=== PATIENT | female | born 1960 | race Caucasian/White ===

== ENCOUNTER 2020-11-10 10:16 | Outpatient (CLI) | payer OTHER, SELFPAY | END 2020-11-10 10:17 | disposition home or self-care (01) | PROVIDERS: PCP Nurse Practitioner Family; Referring Provider Internal Medicine Endocrinology, Diabetes & Metabolism; Visit Provider Registered Nurse | DX: E78.2 Mixed hyperlipidemia (principal); E03.9 Hypothyroidism, unspecified | CPT/HCPCS: 36415; 84443 ==

== ENCOUNTER 2020-12-12 08:55 | Outpatient (CLI) | payer OTHER, SELFPAY ==
--- NOTE | ~2020-12-12 | US_ITS ---
EXAMINATION: US thyroid DATE: 12/12/2020 09:33 INDICATION: Multinodular goiter. TECHNIQUE: Multiple ultrasound images of the thyroid were obtained. COMPARISON: Ultrasound 02/09/2019 FINDINGS: The right thyroid lobe is absent. The left thyroid lobe measures 4.1 x 1.7 x 1.3 cm. The left thyroi d lobe is diffusely heterogeneous and hypoechoic. In the left thyroid lobe, there is a 15 mm solid, h ypoechoic, oltjs-emwh-fxal nodule with ill-defined margin without echogenic foci (TI-RADS TR4). IMPRESSION: 1. Left thyroid nodule, stable from 02/09/2019. Biopsy on 02/21/2019 was benign. Reviewed, dictated and finalized at location B.
[2020-12-12 09:26] LABS: Hemoglobin A1C 9.5 % (<5.7)
[2020-12-12 09:29] LABS: Alanine Aminotransferase 15 U/L (4-35); Alkaline Phosphatase 70 U/L (38-126); Anion Gap 7 mmol/L (8-16); Aspartate Amino Transferase 20 U/L (14-36); Bilirubin,Total 0.3 mg/dL (0.2-1.3); Blood Urea Nitrogen 12 mg/dL (7-17); Calcium 9.3 mg/dL (8.4-10.2); Carbon Dioxide 31 mmol/L (22-30); Chloride 100 mmol/L (98-107); Cholesterol 173 mg/dL (0-200); Estimated Glomerular Filt Rate > 60; Glucose 278 mg/dL (65-105); HDL Direct 43 mg/dL; Potassium 4.2 mmol/L (3.4-5.0); Sodium 138 mmol/L (137-145); Triglycerides 127 mg/dL (<150)
[2020-12-12 09:40] LABS: LDL Cholesterol Direct 105 mg/dL
[2020-12-12 10:34] LABS: Free T4 Free Thyroxine 0.99 ng/mL (0.78-2.19)
[2020-12-12 13:32] LABS: Creatinine Urine 90.1 mg/dL
[2020-12-12 14:21] LABS: MALB Creatinine Ratio 817.8 mg/g (0-30); Microalbumin Urine Random 736.8 mg/L (0-16.7)
== END 2020-12-12 08:56 | disposition home or self-care (01) ==
PROVIDERS: PCP Nurse Practitioner Family; Visit Provider Internal Medicine Endocrinology, Diabetes & Metabolism
DX: E04.2 Nontoxic multinodular goiter (principal); E11.65 Type 2 diabetes mellitus with hyperglycemia; E78.5 Hyperlipidemia, unspecified; E03.9 Hypothyroidism, unspecified
CPT/HCPCS: 36415; 76536; 80053; 80061; 82043; 83036; 84439; 84443

== ENCOUNTER 2021-01-01 14:44 | Outpatient (CLI) | payer OTHER, SELFPAY ==
[2021-01-01 17:17] LABS: Free T4 Free Thyroxine 1.11 ng/mL (0.78-2.19)
[2021-01-04 08:46] LABS: Triiodothyronine T3 Free 2.6 pg/mL (2.3-4.2)
== END 2021-01-01 14:45 | disposition home or self-care (01) ==
LOC: ANHLAB 14:47
PROVIDERS: PCP Nurse Practitioner Family; Visit Provider Internal Medicine Endocrinology, Diabetes & Metabolism
DX: E03.9 Hypothyroidism, unspecified (principal)
CPT/HCPCS: 36415; 84439; 84443; 84481

== ENCOUNTER 2021-01-12 13:55 | Outpatient (CLI) | payer OTHER, SELFPAY ==
--- NOTE | ~2021-01-12 | CT_ITS ---
EXAMINATION: CT lung screening DATE: 01/12/2021 14:21 INDICATION: Shortness of breath, cough. COPD. History of tobacco dependence. TECHNIQUE: Computed tomography (CT) of the chest was performed without intravenous contrast. The dose -length product was 305.09 mGy-cm. Automated exposure control and iterative reconstruction technique were employed. COMPARISON: CT dated 05/17/2019 FINDINGS: Heart size normal. No significant pleural or pericardial effusion. Stable enlarged 1 cm med iastinal lymph node, image 45. No significant pleural or pericardial effusion. Stable low-density lef t adrenal mass measuring 2.6 x 2 cm, likely benign adenoma. There are changes of right hemithyroidect wilma. There are a few scattered 2 mm pulmonary nodules. There is calcified granuloma right lower lobe. Mild emphysema. No endobronchial lesions. There is coronary and aortic atherosclerosis. No significa nt pleural or pericardial effusion. No pneumothorax. IMPRESSION: 1. Lung-RADS category 2: Benign appearance or behavior. Continue annual screening with noncontrast lo w-dose chest CT in 12 months. Reviewed, dictated and finalized at location A. IMPRESSION: 1. Lung-RADS category 2: Benign appearance or behavior. Continue annual screeni ng with noncontrast low-dose chest CT in 12 months.
== END 2021-01-12 13:56 | disposition home or self-care (01) ==
PROVIDERS: PCP Nurse Practitioner Family; Visit Provider Internal Medicine
DX: Z12.2 Encounter for screening for malignant neoplasm of respiratory organs (principal); Z87.891 Personal history of nicotine dependence
CPT/HCPCS: 71271

== ENCOUNTER 2021-06-19 14:38 | Outpatient (CLI) | payer OTHER, SELFPAY ==
--- NOTE | ~2021-06-19 | US_ITS ---
EXAMINATION: US thyroid EXAM DATE: 06/19/2021 16:06 INDICATION: Nontoxic goiter. Right thyroid lobectomy 2001. TECHNIQUE: Multiple grayscale and Doppler images of the thyroid were obtained (by a technologist who performed the scan) and subsequently reviewed. Individual nodules and recommendations may be reporte d in accordance with TI-RADS system as designated by the 2017 ACR White Paper TI-RADS committee. Comp reginason is made to prior examination from 12/12/2020. FINDINGS: Right there are lobe not identified, reportedly surgically absent. The left thyroid lobe is moderatel y diffusely heterogeneous, measures 4.3 x 1.6 x 1.8 cm. There is a thyroid nodule measuring 2.1 x 2.0 x 1.2 cm (previously reported at 1.5 x 1.2 x 1.1 cm in November). This also has reportedly previously bee n biopsied with benign results. The dimensions of the left thyroid lobe also are larger than on prior study. IMPRESSION: 1. Mild increase in size of left thyroid lobe and its previously biopsied nodule. 2. Unremarkable right thyroid lobectomy bed. Reviewed, dictated and finalized at location B. ET LITHOGRAPHIC PRESS SETTER IMPRESSION: 1. Mild increase in size of left thyroid lobe and its previously biopsied nodu le. 2. Unremarkable right thyroid lobectomy bed.
[2021-06-19 16:00] LABS: Free T4 Free Thyroxine 1.29 ng/mL (0.78-2.19)
[2021-06-24 07:08] LABS: Triiodothyronine T3 Free 2.9 pg/mL (2.3-4.2)
== END 2021-06-19 14:39 | disposition home or self-care (01) ==
LOC: ANHIMG 14:41
PROVIDERS: PCP Nurse Practitioner Family; Visit Provider Internal Medicine Endocrinology, Diabetes & Metabolism
DX: E03.9 Hypothyroidism, unspecified (principal)
CPT/HCPCS: 36415; 76536; 84439; 84443; 84481

== ENCOUNTER 2022-03-31 15:35 | Outpatient (CLI) | payer OTHER, SELFPAY ==
[2022-03-31 16:17] LABS: Basophils Absolute Auto 0.1 K/mm3 (0.0-0.1); Basophils Percent Auto 0.6 % (0.2-1.2); Eosinophils Absolute Auto 0.2 K/mm3 (0-0.3); Eosinophils Percent Auto 2.9 % (0-4.4); Hematocrit 34.9 % (37.0-47.0); Hemoglobin 10.1 g/dL (12.0-15.0); Immature Granulocyte Absolute 0.07 K/mm3 (0.00-0.031); Immature Granulocyte Percent A 0.8 % (0-0.5); Lymphocytes Absolute Auto 2.16 K/mm3 (0.9-3.2); Lymphocytes Percent Auto 26.1 % (18.3-44.2); Mean Corpuscular HGB Conc 28.9 g/dl (32-36); Mean Corpuscular Hemoglobin 24.4 pg (26-34); Mean Corpuscular Volume 84.3 fl (80-100); Mean Platelet Volume 9.8 fl (7.4-10.4); Monocytes Absolute Auto 0.6 K/mm3 (0.1-0.6); Monocytes Percent Auto 6.8 % (2.6-8.5); Neutrophils Absolute Auto 5.2 K/mm3 (1.3-6.7); Neutrophils Percent Auto 62.8 % (45.5-73.1); Platelet Count Result 289 k/mm3 (150-375); Red Blood Count 4.14 M/mm3 (4.2-5.4); White Blood Count 8.3 K/mm3 (4.5-10.0)
[2022-03-31 16:27] LABS: Alanine Aminotransferase 8 U/L (6-35); Albumin Level 3.4 g/dL (3.5-5.1); Alkaline Phosphatase 84 U/L (38-126); Anion Gap 8 mmol/L (8-16); Aspartate Amino Transferase 16 U/L (14-36); Bilirubin,Total 0.2 mg/dL (0.2-1.3); Blood Urea Nitrogen 11 mg/dL (7-17); Calcium 8.6 mg/dL (8.4-10.2); Carbon Dioxide 31 mmol/L (22-30); Chloride 99 mmol/L (98-107); Estimated Glomerular Filt Rate > 60; Glucose 105 mg/dL (65-110); Potassium 3.5 mmol/L (3.4-5.0); Sodium 138 mmol/L (137-145)
[2022-03-31 16:58] LABS: Carcinoembryonic Antigen 6.8 ng/mL (0.0-3.0)
[2022-03-31 17:10] LABS: Hemoglobin A1C 7.9 % (<5.7)
== END 2022-03-31 15:36 | disposition home or self-care (01) ==
PROVIDERS: PCP Nurse Practitioner Family
DX: E11.9 Type 2 diabetes mellitus without complications (principal); Z79.4 Long term (current) use of insulin
CPT/HCPCS: 36415; 80053; 82378; 83036; 85025

== ENCOUNTER 2022-04-08 15:03 | Outpatient (CLI) | payer OTHER, SELFPAY ==
[2022-04-08 15:34] LABS: Alanine Aminotransferase 14 U/L (6-35); Albumin Level 4.1 g/dL (3.5-5.1); Alkaline Phosphatase 77 U/L (38-126); Anion Gap 8 mmol/L (8-16); Aspartate Amino Transferase 18 U/L (14-36); Bilirubin,Total 0.3 mg/dL (0.2-1.3); Blood Urea Nitrogen 10 mg/dL (7-17); Calcium 9.8 mg/dL (8.4-10.2); Carbon Dioxide 27 mmol/L (22-30); Chloride 103 mmol/L (98-107); Estimated Glomerular Filt Rate > 60; Glucose 126 mg/dL (65-110); Potassium 4.6 mmol/L (3.4-5.0); Sodium 138 mmol/L (137-145)
[2022-04-08 15:45] LABS: Appearance Urine Clear (Clear); Bilirubin Urine Negative (Negative); Blood Urine 2+ (Negative); Glucose Urine UA Negative (Negative); Ketones Urine Negative (Negative); Leukocyte Esterase Ur 2+ LEU/UL (Negative); Nitrate Urine Negative (Negative); Protein Urine 1+ mg/dL (Negative); Specific Grav Ur 1.015 (1.001-1.035); Urobilinogen Urine 0.2 mg/dL (<2.0); pH Urine 7.5 (5.0-9.0)
[2022-04-08 15:57] LABS: Add Urine Microscopic? YES; Color Urine Light Yellow (Yellow)
[2022-04-08 16:00] LABS: Bacteria Urine Trace /hpf; Mucus Urine Rare /lpf; Squamous Epithelial Cell Urine Rare /hpf (Few); WBC Urine 21-30 /hpf
== END 2022-04-08 15:04 | disposition home or self-care (01) ==
LOC: ANHLAB 15:04
PROVIDERS: PCP Nurse Practitioner Family; Visit Provider Nurse Practitioner Family
DX: E87.6 Hypokalemia (principal); E03.9 Hypothyroidism, unspecified; I10 Essential (primary) hypertension; R30.0 Dysuria
CPT/HCPCS: 36415; 80053; 81001; 87086

== ENCOUNTER 2023-02-02 13:41 | Outpatient (CLI) | payer OTHER, SELFPAY ==
--- NOTE | ~2023-02-02 | US_ITS ---
EXAMINATION: US thyroid DATE: 02/02/2023 14:16 INDICATION: Nontoxic goiter TECHNIQUE: Multiple ultrasound images of the thyroid were obtained. COMPARISON: None. FINDINGS: The right thyroid lobe is not visualized and reportedly surgically absent. No abnormal soft tissue id entified at the right thyroid fossa. The left thyroid lobe measures 3.6 x 1.3 x 1.6 cm. 2.7 cm wider than tall solid heterogeneously isoechoic hypoechoic nodule with lobular margins in the left thyroid lobe. (TI-RADS 4, moderately suspicious , FNA if >=1.5 cm, annual followup is >=1 cm). There is norm al echotexture, echogenicity and vascular flow throughout the remainder of the left thyroid lobe. IMPRESSION: 1. 2.7 cm TI RADS 4 left thyroid nodule for which ultrasound-guided biopsy would be recommended. 2. Status post right thyroidectomy. Reviewed, dictated and finalized at location B. IMPRESSION: 1. 2.7 cm TI RADS 4 left thyroid nodule for which ultrasound-guided biopsy woul d be recommended. 2. Status post right thyroidectomy.
--- NOTE | ~2023-02-02 | CT_ITS ---
EXAMINATION: CT cervical spine wo con DATE: 02/02/2023 14:13 INDICATION: Neck pain. Bilateral hand pain. TECHNIQUE: Computed tomography (CT) of the cervical spine was performed without intravenous contrast. Automated exposure control and iterative reconstruction technique were employed. The dose-length pro duct was 855.49 mGy-cm. COMPARISON: None FINDINGS: There is mild emphysema. There are changes of right hemithyroidectomy. There is mild kyphos is of cervical spine. There is 2 mm anterolisthesis of C3 on C4 and C4 on C5. Vertebral body heights are normal. There is mildly decreased disc height at C5-C6 and moderately decreased disc height at C6 -C7. The following disc levels are specifically discussed: C2-C3: There is mild right uncovertebral joint osteoarthritis. There is no facet joint osteoarthritis . There is no neural foraminal stenosis. There is no central canal stenosis. C3-C4: There is no uncovertebral joint osteoarthritis. There is severe right and moderate left facet joint osteoarthritis. There is mild right neural foraminal stenosis. There is no central canal stenos is. C4-C5: There is mild right uncovertebral joint osteoarthritis. There is severe right and moderate lef t facet joint osteoarthritis. There is mild right neural foraminal stenosis. There is mild central ca nal stenosis. C5-C6: There is mild right and moderate left uncovertebral joint osteoarthritis. There is mild right and severe left facet joint osteoarthritis. There is mild left neural foraminal stenosis. There is mi ld central canal stenosis. C6-C7: There is severe right and mild left uncovertebral joint osteoarthritis. There is moderate bila teral facet joint osteoarthritis. There is mild right neural foraminal stenosis. There is mild centra l canal stenosis. C7-T1: There is no uncovertebral joint osteoarthritis. There is severe right and moderate left facet joint osteoarthritis. There is mild right neural foraminal stenosis. There is no central canal stenos is. IMPRESSION: 1. Moderate cervical spondylosis. Reviewed, dictated and finalized at location A.
== END 2023-02-02 13:42 | disposition home or self-care (01) ==
LOC: ANHIMG 13:43
PROVIDERS: PCP Nurse Practitioner Family; Visit Provider Internal Medicine Endocrinology, Diabetes & Metabolism
DX: E04.9 Nontoxic goiter, unspecified (principal); M79.641 Pain in right hand; M79.642 Pain in left hand; M47.892 Other spondylosis, cervical region
CPT/HCPCS: 72125; 76536

== ENCOUNTER 2023-03-14 12:23 | Outpatient (CLI) | payer OTHER, SELFPAY ==
--- NOTE | ~2023-03-14 | US_ITS ---
EXAMINATION: US FNA w image guidance DATE: 03/14/2023 13:41 INDICATION: Nontoxic single thyroid nodule TECHNIQUE: A time-out was performed to verify the patient's name, date of , and procedure to be performed . The procedure and its benefits and risks were discussed with the patient. Risks specifically discus sed included bleeding and infection. The patient understood the risks and agreed to proceed. The neck was prepped and draped in the usual sterile manner. 3 mL 1% lidocaine was used for local anesthesia . 6 passes were made with a 25G needle into the lesion. Appropriate needle location was documented with continuous sonographic guidance. A sterile bandage was applied. There were no immediate compli cations. FINDINGS: Grayscale ultrasound images demonstrate biopsy needles advanced into a 2.0 cm solid hypoechoic nodule in the left thyroid. IMPRESSION: 1. Successful ultrasound-guided fine needle aspiration of a 2.0 cm TI RADS 4 left thyroid nodule. Reviewed, dictated and finalized at location A. IMPRESSION: 1. Successful ultrasound-guided fine needle aspiration of a 2.0 cm TI RADS 4 l eft thyroid nodule.
== END 2023-03-14 12:24 | disposition home or self-care (01) ==
PROVIDERS: PCP Nurse Practitioner Family; Visit Provider Internal Medicine Endocrinology, Diabetes & Metabolism
DX: E04.1 Nontoxic single thyroid nodule (principal)
CPT/HCPCS: 10005; 88173; 88305

== ENCOUNTER 2024-01-31 16:16 | Outpatient (CLI) | payer OTHER, SELFPAY ==
--- NOTE | ~2024-01-31 | US_ITS ---
EXAMINATION: US thyroid DATE: 01/31/2024 17:17 INDICATION: Acquired hypothyroidism. TECHNIQUE: Multiple ultrasound images of the thyroid were obtained. COMPARISON: Ultrasound 03/14/2023, 02/02/23, 06/19/21 FINDINGS: There are changes of right hemithyroidectomy. The left thyroid lobe measures 4.8 x 2.2 x 1.7 cm. In t he left thyroid lobe, there is a 3.1 cm predominantly solid, hypoechoic, wider than tall nodule with lobulated margins without echogenic foci (TI-RADS TR4), stable from 03/14/2023 when biopsy was benign. IMPRESSION: 1. Stable benign left thyroid nodule. Reviewed, dictated and finalized at location A.
== END 2024-01-31 16:17 | disposition home or self-care (01) ==
PROVIDERS: PCP Nurse Practitioner Family; Visit Provider Nurse Practitioner Family
DX: E03.9 Hypothyroidism, unspecified (principal); E04.1 Nontoxic single thyroid nodule
CPT/HCPCS: 76536

== ENCOUNTER 2024-12-17 15:15 | Outpatient (CLI) | payer OTHER, SELFPAY ==
--- NOTE | ~2024-12-17 | CT_ITS ---
CT Scan of the Chest without Contrast: Clinical Indication: Lung cancer screening, nicotine dependence Technique: Contiguous sections were acquired throughout the chest without intravenous contrast. Dose reduction technique was used on this scan by utilizing automated exposure control and iterative recon struction technique. The dose-length product (DLP) was 423.82 mGy-cm. COMPARISON: 01/12/2021 Findings: There is no evidence of any significant mediastinal, hilar or axillary lymphadenopathy. Coronary deepa ry calcifications are present. There is no evidence of pleural or pericardial effusion. There is mild emphysema and/or interstitial change. A few scattered 1-2 mm pulmonary nodules are pres ent peripherally. Images through the upper abdomen reveal low-density left adrenal nodule, compatible with adenoma. Impression: Lung RADS 2: Benign appearance. 12 month follow-up screening CT advised. Reviewed, dictated and finalized at location . Impression: Lung RADS 2: Benign appearance. 12 month follow-up screening CT advised.
--- OUTSIDE RECORDS SUMMARY | 2024-12-17 15:18 | XMS_ITS | Encounter Summary ---
Author Organization [facility] Address [address] [place] [id number] Care Team Providers Care Outsole Skiver Name Role Phone Kristen Kline PRAFUL Primary Care Provider [phone] Encounter Details Date Type Department Care Team (Late st Contact Info) Description 11/07/2021 Endocrine Technologyt Message Enc [facility] Medical Group Family & Internal Medicine [facility] [address] [place] [address] AguedaKristen johnson FNP [address] [place] [address] Blood Pressures Social History Tobacco Use Types Packs/Day Years Used Date Smoking Tobacco: Every Day Cigarettes 2.5 47 Smokeless Tobacco: Never Comments:Provider to social services counselor Alcohol Use Standard Drinks/Week Comments No 0 (1 standard drink = 0.6 oz pur e alcohol) AUDIT-C Answer Date Recorded Frequency of Alcohol Consumption Never 06/20/2018 Average Number of Drinks Not on file 018 Frequency of Binge Drinking Not on file 06/02 PHQ-2 Answer Date Recorded PHQ-2 Score - If the patient scores above 3, please move on to questions 3-9 2 12/01/2020 Comments No Sex and Gender Information Value Date Recorded Sex Assigned at Female 10/13/2020 8:35 PM CDT Legal Sex Female 7:07 PM CDT Gender Identity Female 10/13/2020 8:35 PM CDT Sexual Orientation Straight 10/13/2020 8: 35 PM CDT COVID-19 Exposure Response Date Recorded In the last 10 days, have howard fernando been in contact with someone who was confirmed or suspected to have Coronavirus/COVID-19? No / Unsure 11/04/2021 1:31 PM CDT documented as of this encounter Functional Status * RETIRED Are you deaf or do you have serious difficulty hearing Answer Date of Assessment Author Status No 09/25/2021 2:24 PM PERSONAL BANKING REPRESENTATIVE Activ e * RETIRED Are you blind or do you have serious difficulty seeing, even when wearing glasses? Answer Date of Assessment Author Status No 09/25/2021 2:24 PM PERSONAL BANKING REPRESENTATIVE Activ e * Do you have serious difficulty walking or climbing stairs? Answer Date of Assessment Author Status No 09/25/2021 2:24 PM Rayna Luis RN Active * Do you have difficulty dressing or bathing? Answer Date of Assessment Author Status No 09/25/2021 2:24 PM Rayna Luis RN Active * Because of a physical, mental, or emotional condition, do you have difficulty doing errands alone such as visiting a doctor's office or shopping? Answer Date of Assessment Author Status No 09/25/2021 2:24 PM Rayna Luis RN Active documented as of this encounter Mental Status * Because of a physical, mental, or emotional condition, do you have serious difficulty concentrating, remembering, or making decisions? Answer Entry Date Author Status No 09/25/2021 2:24 PM Rayna Luis RN Active documented in this encounter Progress Notes * PRAFUL Leal - 11/09/2021 12:40 PM CDT Okay so continue current medication and keep monitoring her blood pressure daily. documented in this encounter Plan of Treatment Not on file documented as of this encounter Goals Goal Patient Goal Type Associated Problems Recent Progress Patient-Stated? Author Monitor - able to maintain pain control General No Shannon Garcia, RN Health - patient able to perform ADLs independently General No Ward Sebastian RN documented as of this encounter Visit Diagnoses Not on filedocumented in this encounter Additional Health Concerns Assessment Noted Time PHQ-9 Depression Total Score: 8 12/02/19 21 11:59 AM CDT documented as of this encounter Care Teams Outsole Skiver Relationship Specialty Start Date End Date Kristen Kline FNP [address] [place] [address] PCP - General NURSE PRACTITIONER 05/04/18 documented as of this encounter
--- OUTSIDE RECORDS SUMMARY | 2024-12-17 15:18 | XMS_ITS | Encounter Summary ---
Author Organization [facility] Address [facility] [place] [address] Care Team Providers Care Information Scientist Name Role Phone Kristen Kline Primary Care Provider [phone] Encounter Details Date Type Department Care Team (Late st Contact Info) Description 06/07/2018 Abstract [facility] Medical Group Diabetes and Endocrinology - [place] [address] Aileen Davalos MD [facility] [facility] [address] [place] [address] Social History Tobacco Use Types Packs/Day Years Used Date Smoking Tobacco: Never Assessed Comments Unknown Sex and Gender Information Value Date Recorded Sex Assigned at Female 10/13/2020 8:35 PM CDT Legal Sex Female 7:07 PM CDT Gender Identity Female 10/13/2020 8:35 PM CDT Sexual Orientation Straight 10/13/2020 8: 35 PM CDT documented as of this encounter Plan of Treatment Not on file documented as of this encounter Visit Diagnoses Not on filedocumented in this encounter Care Teams Information Scientist Relationship Specialty Start Date End Date Kristen Kline FNP [address] [place] [address] PCP - General NURSE PRACTITIONER 05/04/18 documented as of this encounter
--- OUTSIDE RECORDS SUMMARY | 2024-12-17 15:18 | XMS_ITS | Encounter Summary ---
Author Organization [facility] Address [address] [place] [address] Care Team Providers Care Quality Intern Name Role Phone Kristen Kline PRAFUL Primary Care Provider [phone] Reason for Visit * Reason Comments Ear Problem Patient presenting t o the office right ear discomfort- Thyroid Would like to do TSH draw today Diabetes Per patients CGM- 9. 5% is her A1C - - Encounter Details Date Type Department Care Team (Late st Contact Info) Description 12/17/2024 2:00 PM CDT Office Visit [facility] Medical Group Family & Internal Medicine - [address] [address] Kristen KlinePRAFUL [address] [place] [address] [id number] Ear Problem (Patient presenting to the office right ear discomfort- ); Thyroid (Would like to do TSH draw today ); Diabetes (Per patients CGM- 9.5% is her A1C - - ) Social History Tobacco Use Types Packs/Day Years Used Date Smoking Tobacco: Every Day Cigarettes 2 47 Smokeless Tobacco: Never Tobacco Cessation:Ready to Q uit: No; Counseling Given: Yes Comments:Have cut down on smoking by 1 pack. down to 2 packs. Provider to drug abuse counselor Alcohol Use Standard Drinks/Week Comments Never 0 (1 standard drink = 0.6 oz pur e alcohol) AUDIT-C Answer Date Recorded Frequency of Alcohol Consumption Never 06/20/2018 Average Number of Drinks Not on file 018 Frequency of Binge Drinking Not on file 06/02 PHQ-2 Answer Date Recorded Patient Health Questionnaire-2 Score 2 11/01/2024 Comments No Sex and Gender Information Value Date Recorded Sex Assigned at Female 10/13/2020 8:35 PM CDT Legal Sex Female 7:07 PM CDT Gender Identity Female 10/13/2020 8:35 PM CDT Sexual Orientation Straight 10/13/2020 8: 35 PM CDT documented as of this encounter Last Filed Vital Signs Vital Sign Reading Time Taken Comments Blood Pressure 126/84 12/17/2024 2:11 PM CDT Pulse 63 12/17/2024 2:11 PM CDT Temperature 36.3 C (97.3 F) 12/17/2024 2:11 PM CDT Respiratory Rate 18 12/17/2024 2:11 PM CDT Oxygen Saturation 96% 12/17/2024 2:11 PM CDT Inhaled Oxygen Concentration - - Weight 106.3 kg (234 lb 6.4 oz) 12/17/2024 2:11 PM CDT Height 170.2 cm (5' 7 ) 12/17/2024 2:11 PM CDT Body Mass Index 36.71 12/17/2024 2:11 PM CDT documented in this encounter Functional Status * RETIRED Are you deaf or do you have serious difficulty hearing Answer Date of Assessment Author Status No 09/25/2021 2:24 PM COMMISSION AGENT LIVESTOCK Activ e * RETIRED Are you blind or do you have serious difficulty seeing, even when wearing glasses? Answer Date of Assessment Author Status No 09/25/2021 2:24 PM COMMISSION AGENT LIVESTOCK Activ e * Do you have serious [...] Date Author Status No 09/25/2021 2:24 PM COMMISSION AGENT LIVESTOCK Rayna Guerra RN Active documented in this encounter Plan of Treatment Not on file documented as of this encounter Goals Goal Patient Goal Type Associated Problems Recent Progress Patient-Stated? Author Monitor - able to maintain pain control General No Shannon Garcia RN Health - patient able to perform ADLs independently General No Ward Sebastian RN documented as of this encounter Visit Diagnoses Diagnosis Right ear pain- Primary Otalgia, unspecified Acquired hypothyroidism Unspecified hypothyroidism Upper respiratory tract infection, unspecified type Acute otitis externa of both ears, unspecified type Type 2 diabetes mellitus with diabetic polyneuropathy, with long-term current use of insulin ([facility]) documented in this encounter Additional Health Concerns Assessment Noted Time PHQ-9 Depression Total Score: 0 08/17/19 23 1:11 PM COMMISSION AGENT LIVESTOCK documented as of this encounter Care Teams Quality Intern Relationship Specialty Start Date End Date Kristen Kline FNP [address] [place] [phone] PCP - General NURSE PRACTITIONER 05/04/18 documented as of this encounter
--- OUTSIDE RECORDS SUMMARY | 2024-12-17 15:18 | XMS_ITS | Encounter Summary ---
Author Organization [facility] Address [address] [place] [address] Care Team Providers Care Electro Optics Engineer Name Role Phone Kristen Kline PROVINCE ARCHIVIST Primary Care Provider [phone] Encounter Details Date Type Department Care Team (Late st Contact Info) Description 01/26/2023 Canvashart Message [facility] Medical Group - [facility] [address] [place], [place] [id number] [employer], [facility] Provider Air Quality Message Social History Tobacco Use Types Packs/Day Years Used Date Smoking Tobacco: Every Day Cigarettes 2 47 Smokeless Tobacco: Never Comments:Have cut down on sm oking by 1 pack. down to 2 packs. Provider to certified rehabilitation counselor Alcohol Use Standard Drinks/Week Comments No 0 (1 standard drink = 0.6 oz pur e alcohol) AUDIT-C Answer Date Recorded Frequency of Alcohol Consumption Never 06/20/2018 Average Number of Drinks Not on file 018 Frequency of Binge Drinking Not on file 06/02 PHQ-2 Answer Date Recorded Patient Health Questionnaire-2 Score 0 08/17/2022 Comments No Sex and Gender Information Value [...] Assessment Author Status No 09/25/2021 2:24 PM AUDIO VISUAL COORDINATOR Activ e * RETIRED Are you blind or do you have serious difficulty seeing, even when wearing glasses? Answer Date of Assessment Author Status No 09/25/2021 2:24 PM AUDIO VISUAL COORDINATOR Activ e * Do you have serious [...] Luis RN Active documented in this encounter Plan [...] Total Score: 0 08/17/19 23 1:11 PM AUDIO VISUAL COORDINATOR documented as of this encounter Care Teams Electro Optics Engineer Relationship Specialty Start Date End Date Kristen Kline FNP [address] [place] [address] PCP - General NURSE PRACTITIONER 05/04/18 documented as of this encounter
--- OUTSIDE RECORDS SUMMARY | 2024-12-17 15:18 | XMS_ITS | Encounter Summary ---
Author Organization [facility] Address [address] [place] [address] Care Team Providers Care Biometrics Head Name Role Phone Kristen Kline POLICE DISTRICT SWITCHBOARD OPERATOR Primary Care Provider [phone] Encounter Details Date Type Department Care Team (Late st Contact Info) Description 2023 Micron[employer] Message [facility] Medical Group Family & Internal Medicine [address] [phone] [place], [facility] Provider Lab results Social History Tobacco Use Types Packs/Day Years Used Date Smoking Tobacco: Every Day Cigarettes 2 47 Smokeless Tobacco: Never Comments:Have cut down on sm oking by 1 pack. down to 2 packs. Provider to staff counsel Alcohol Use Standard Drinks/Week Comments No 0 [...] Assessment Author Status No 09/25/2021 2:24 PM STATION MECHANIC Activ e * RETIRED Are you blind or do you have serious difficulty seeing, even when wearing glasses? Answer Date of Assessment Author Status No 09/25/2021 2:24 PM STATION MECHANIC Activ e * Do you have serious difficulty walking or climbing stairs? Answer Date of Assessment Author Status No 09/25/2021 2:24 PM Rayna Luis RN Active * Do you have difficulty dressing or bathing? Answer Date of Assessment Author Status No 09/25/2021 2:24 PM STATION MECHANIC Rayna Guerra RN Active * Because of a physical, mental, or emotional condition, do you have difficulty doing errands alone such as visiting a doctor's office or shopping? Answer Date of Assessment Author Status No 09/25/2021 2:24 PM STATION MECHANIC Rayna Guerra RN Active documented as of this encounter Mental Status * Because of a physical, mental, or emotional condition, do you have serious difficulty concentrating, remembering, or making decisions? Answer Entry Date Author Status No 09/25/2021 2:24 PM STATION MECHANIC Rayna Guerra RN Active documented in this [...] Total Score: 0 08/17/19 23 1:11 PM STATION MECHANIC documented as of this encounter Care Teams Biometrics Head Relationship Specialty Start Date End Date Kristen Kline FNP [address] [place] [id number] PCP - General NURSE PRACTITIONER 05/04/18 documented as of this encounter
--- OUTSIDE RECORDS SUMMARY | 2024-12-17 15:18 | XMS_ITS | Encounter Summary ---
Author Organization [facility] Address [address] [place] [address] Care Team Providers Care Putty Remover Name Role Phone Kristen Kline PRAFUL Primary Care Provider [phone] Encounter Details Date Type Department Care Team (Late st Contact Info) Description 01/24/2024 [employer] Message Enc [facility] Medical Group Family & Internal Medicine [facility] [address] [place] [address] Kristen Kline FNP [address] [place] [address] thyroid ultrasound Social History Tobacco Use Types Packs/Day Years Used Date Smoking Tobacco: Every Day Cigarettes 2 47 Smokeless Tobacco: Never Comments:Have cut down on sm oking by 1 pack. down to 2 packs. Provider to certified credit counselor Alcohol Use Standard Drinks/Week Comments No [...] Assessment Author Status No 09/25/2021 2:24 PM POLISHING WHEEL SETTER Activ e * RETIRED Are you blind or do you have serious difficulty seeing, even when wearing glasses? Answer Date of Assessment Author Status No 09/25/2021 2:24 PM POLISHING WHEEL SETTER Activ e * Do you have serious difficulty walking or climbing stairs? Answer Date of Assessment Author Status No 09/25/2021 2:24 PM POLISHING WHEEL SETTER Rayna Guerra RN Active * Do you have difficulty dressing or bathing? Answer Date of Assessment Author Status No 09/25/2021 2:24 PM POLISHING WHEEL SETTER Rayna Guerra RN Active * Because of a physical, mental, or emotional condition, do you have difficulty doing errands alone such as visiting a doctor's office or shopping? Answer Date of Assessment Author Status No 09/25/2021 2:24 PM POLISHING WHEEL SETTER Rayna Guerra RN Active documented as of [...] Total Score: 0 08/17/19 23 1:11 PM POLISHING WHEEL SETTER documented as of this encounter Care Teams Putty Remover Relationship Specialty Start Date End Date Kristen Kline FNP [address] [place] [phone] PCP - General NURSE PRACTITIONER 05/04/18 documented as of this encounter
--- OUTSIDE RECORDS SUMMARY | 2024-12-17 15:18 | XMS_ITS | Encounter Summary ---
Author Organization [facility] Address [address] [place] [address] Care Team Providers Care Optician Manager Name Role Phone Kristen Kline GASOLINE TESTER Primary Care Provider [phone] Encounter Details Date Type Department Care Team (Late st Contact Info) Description 05/21/2024 CommProve Message [facility] Family & Internal Medicine [address] [phone] [facility], [facility] Provider Thyroid results Social History Tobacco Use Types Packs/Day Years Used Date Smoking Tobacco: Every Day Cigarettes 2 47 Smokeless Tobacco: Never Comments:Have cut down on sm oking by 1 pack. down to 2 packs. Provider to breastfeeding peer counselor Alcohol Use Standard Drinks/Week Comments No [...] Assessment Author Status No 09/25/2021 2:24 PM CLINICAL LABORATORY MEDICAL DIRECTOR Activ e * RETIRED Are you blind or do you have serious difficulty seeing, even when wearing glasses? Answer Date of Assessment Author Status No 09/25/2021 2:24 PM CLINICAL LABORATORY MEDICAL DIRECTOR Activ e * Do you have serious difficulty walking or climbing stairs? Answer Date of Assessment Author Status No 09/25/2021 2:24 PM Rayna Luis RN Active * Do you have difficulty dressing or bathing? Answer Date of Assessment Author Status No 09/25/2021 2:24 PM CLINICAL LABORATORY MEDICAL DIRECTOR Rayna Guerra RN Active * Because of a physical, mental, or emotional condition, do you have difficulty doing errands alone such as visiting a doctor's office or shopping? Answer Date of Assessment Author Status No 09/25/2021 2:24 PM CLINICAL LABORATORY MEDICAL DIRECTOR Rayna Guerra RN Active documented as of this encounter Mental Status * Because of a physical, mental, or emotional condition, do you have serious difficulty concentrating, remembering, or making decisions? Answer Entry Date Author Status No 09/25/2021 2:24 PM CLINICAL LABORATORY MEDICAL DIRECTOR Rayna Guerra RN Active documented in this [...] Total Score: 0 08/17/19 23 1:11 PM CLINICAL LABORATORY MEDICAL DIRECTOR documented as of this encounter Care Teams Optician Manager Relationship Specialty Start Date End Date Kristen Kline FNP [address] [place] [address] PCP - General NURSE PRACTITIONER 05/04/18 documented as of this encounter
--- OUTSIDE RECORDS SUMMARY | 2024-12-17 15:18 | XMS_ITS | Encounter Summary ---
Author Organization [facility] Address [address] [place] [address] Care Team Providers Care Agricultural Equipment Mechanic Name Role Phone Kristen Kline PUBLIC RELATIONS OFFICER Primary Care Provider [phone] Encounter Details Date Type Department Care Team (Latest Contact Info) Description 12/17/2024 Travel Social History Tobacco Use Types Packs/Day Years Used Date Smoking Tobacco: Every Day Cigarettes 2 47 Smokeless Tobacco: Never Comments:Have cut down on sm oking by 1 pack. down to 2 packs. Provider to genetic counselor Alcohol Use Standard Drinks/Week Comments Never [...] Assessment Author Status No 09/25/2021 2:24 PM OCCASIONAL CAREGIVER Activ e * RETIRED Are you blind or do you have serious difficulty seeing, even when wearing glasses? Answer Date of Assessment Author Status No 09/25/2021 2:24 PM OCCASIONAL CAREGIVER Activ e * Do you have serious difficulty walking or climbing stairs? Answer Date of Assessment Author Status No 09/25/2021 2:24 PM OCCASIONAL CAREGIVER Rayna Guerra RN Active * Do you have difficulty dressing or bathing? Answer Date of Assessment Author Status No 09/25/2021 2:24 PM OCCASIONAL CAREGIVER Rayna Guerra RN Active * Because of a physical, mental, or emotional condition, do you have difficulty doing errands alone such as visiting a doctor's office or shopping? Answer Date of Assessment Author Status No 09/25/2021 2:24 PM OCCASIONAL CAREGIVER Rayna Guerra RN Active documented as of [...] Total Score: 0 08/17/19 23 1:11 PM OCCASIONAL CAREGIVER documented as of this encounter Care Teams Agricultural Equipment Mechanic Relationship Specialty Start Date End Date Kristen Kline FNP [address] [place] [phone] PCP - General NURSE PRACTITIONER 05/04/18 documented as of this encounter
--- OUTSIDE RECORDS SUMMARY | 2024-12-17 15:18 | XMS_ITS | Encounter Summary ---
Author Organization [facility] Address [address] [place] [address] Care Team Providers Care Safe And Vault Installer Name Role Phone Kristen Kline PRAFUL Primary Care Provider [phone] Encounter Details Date Type Department Care Team (Late st Contact Info) Description 11/11/2021 [place] [employer] Message Enc [facility] Medical Group Family & Internal Medicine [facility] [address] [place] [address] AguedaKristen johnson FNP [address] [place] [address] White count Social History Tobacco Use Types Packs/Day Years Used Date Smoking Tobacco: Every Day Cigarettes 2.5 47 Smokeless Tobacco: Never Comments:Provider to peer financial counselor Alcohol Use Standard Drinks/Week Comments No [...] suspected to have Coronavirus/COVID-19? No / Unsure 11/11/2021 9:26 AM CDT documented as of this encounter Functional Status * RETIRED Are you deaf or do you have serious difficulty hearing Answer Date of Assessment Author Status No 09/25/2021 2:24 PM POLICE OFFICER CRIME PREVENTION Activ e * RETIRED Are you blind or do you have serious difficulty seeing, even when wearing glasses? Answer Date of Assessment Author Status No 09/25/2021 2:24 PM POLICE OFFICER CRIME PREVENTION Activ e * Do you have serious [...] documented as of this encounter Care Teams Safe And Vault Installer Relationship Specialty Start Date End Date Kristen Kline FNP [address] [place] [address] PCP - General NURSE PRACTITIONER 10/4/18 documented as of this encounter
--- OUTSIDE RECORDS SUMMARY | 2024-12-17 15:18 | XMS_ITS | Encounter Summary ---
Author Organization [facility] Address [address] [place] [address] Care Team Providers Care Sales Clerk Supervisor Name Role Phone Kristen Kline PRAFUL Primary Care Provider [phone] Encounter Details Date Type Department Care Team (Late st Contact Info) Description 12/13/2023 [employer] Message Enc [facility] Medical Group Family & Internal Medicine [facility] [address] [place] [address] Kristen Kline FNP [address] [place] [address] UTI Social History Tobacco Use Types Packs/Day Years Used Date Smoking Tobacco: Every Day Cigarettes 2 47 Smokeless Tobacco: Never Comments:Have cut down on sm oking by 1 pack. down to 2 packs. Provider to preparole counseling aide Alcohol Use Standard Drinks/Week Comments No 0 [...] Assessment Author Status No 09/25/2021 2:24 PM MANUFACTURING ENGINEERING INTERN Activ e * RETIRED Are you blind or do you have serious difficulty seeing, even when wearing glasses? Answer Date of Assessment Author Status No 09/25/2021 2:24 PM MANUFACTURING ENGINEERING INTERN Activ e * Do you have serious difficulty walking or climbing stairs? Answer Date of Assessment Author Status No 09/25/2021 2:24 PM MANUFACTURING ENGINEERING INTERN Rayna Guerra RN Active * Do you have difficulty dressing or bathing? Answer Date of Assessment Author Status No 09/25/2021 2:24 PM MANUFACTURING ENGINEERING INTERN Rayna Guerra RN Active * Because of a physical, mental, or emotional condition, do you have difficulty doing errands alone such as visiting a doctor's office or shopping? Answer Date of Assessment Author Status No 09/25/2021 2:24 PM MANUFACTURING ENGINEERING INTERN Rayna Guerra RN Active documented as of this encounter Mental Status * Because of a physical, mental, or emotional condition, do you have serious difficulty concentrating, remembering, or making decisions? Answer Entry Date Author Status No 09/25/2021 2:24 PM MANUFACTURING ENGINEERING INTERN Rayna Guerra RN Active documented in this encounter Progress Notes * PRAFUL Leal - 12/13/2023 1:37 PM CDT If she can give us a UA, that would be advisable. documented in this encounter Plan of Treatment [...] Total Score: 0 08/17/19 23 1:11 PM MANUFACTURING ENGINEERING INTERN documented as of this encounter Care Teams Sales Clerk Supervisor Relationship Specialty Start Date End Date Kristen Kline FNP [address] [place] [address] PCP - General NURSE PRACTITIONER 05/04/18 documented as of this encounter
--- OUTSIDE RECORDS SUMMARY | 2024-12-17 15:18 | XMS_ITS | Encounter Summary ---
Author Organization [facility] Address [address] [place] [address] Care Team Providers Care Administrative Resident Name Role Phone Kristen Kline PRAFUL Primary Care Provider [phone] Encounter Details Date Type Department Care Team (Late st Contact Info) Description 12/03/2021 [employer] Message Enc [facility] Medical Group Family & Internal Medicine [facility] [address] [place] [address] AguedaKristen johnson FNP [address] [place] [address] Covid test Social History Tobacco Use Types Packs/Day Years Used Date Smoking Tobacco: Every Day Cigarettes 2.5 47 Smokeless Tobacco: Never Comments:Provider to veterans' counselor Alcohol Use Standard Drinks/Week Comments No [...] suspected to have Coronavirus/COVID-19? No / Unsure 12/04/2021 1:27 PM CDT documented as of this encounter Functional Status * RETIRED Are you deaf or do you have serious difficulty hearing Answer Date of Assessment Author Status No 09/25/2021 2:24 PM MEDICAL DIRECTOR OF HOSPICE Activ e * RETIRED Are you blind or do you have serious difficulty seeing, even when wearing glasses? Answer Date of Assessment Author Status No 09/25/2021 2:24 PM MEDICAL DIRECTOR OF HOSPICE Activ e * Do you have serious [...] documented as of this encounter Care Teams Administrative Resident Relationship Specialty Start Date End Date Kristen Kline FNP [address] [place] [address] PCP - General NURSE PRACTITIONER 05/04/18 documented as of this encounter
--- OUTSIDE RECORDS SUMMARY | 2024-12-17 15:18 | XMS_ITS | Encounter Summary ---
Author Organization [facility] Address [address] [place] [address] Care Team Providers Care Scanning Tech Name Role Phone Eliud Kristen BASILIO Primary Care Provider [phone] Encounter Details Date Type Department Care Team (Late st Contact Info) Description 10/30/2018 Social Work HEALTH INFO SRV[facility] Scanned, Documents Social History Tobacco Use Types Packs/Day Years Used Date Smoking Tobacco: Every Day Cigarettes Smokeless Tobacco: Never Alcohol Use Standard Drinks/Week Comments No 0 (1 standard drink = 0.6 oz pur e alcohol) AUDIT-C Answer Date Recorded Frequency of Alcohol Consumption Never 06/20/2018 Average Number of Drinks Not on file 018 Frequency of Binge Drinking Not on file 06/02 Comments No Sex and Gender Information Value [...] on filedocumented in this encounter Care Teams Scanning Tech Relationship Specialty Start Date End Date Kristen Kline FNP [address] [place] [address] PCP - General NURSE PRACTITIONER 05/04/18 documented as of this encounter
--- OUTSIDE RECORDS SUMMARY | 2024-12-17 15:18 | XMS_ITS | Encounter Summary ---
Author Organization [facility] Address [address] [place] [address] Care Team Providers Care Deputy Sheriff Court Services Name Role Phone Kristen Kline [facility] Primary Care Provider [phone] Encounter Details Date Type Department Care Team (Late st Contact Info) Description 05/04/2022 Method CRM Message [employer] [facility] Medical Group Family & Internal Medicine [address] [address] [employer], [facility] Provider lab results Social History Tobacco Use Types Packs/Day Years Used Date Smoking Tobacco: Every Day Cigarettes 2.5 47 Smokeless Tobacco: Never Comments:Provider to certified substance abuse counselor Alcohol Use Standard Drinks/Week Comments No 0 (1 standard drink = 0.6 oz pur e alcohol) AUDIT-C Answer Date Recorded Frequency of Alcohol Consumption Never 06/20/2018 Average Number of Drinks Not on file 018 Frequency of Binge Drinking Not on file 06/02 PHQ-2 Answer Date Recorded PHQ-2 Score - If the patient scores above 3, please move on to questions 3-9 1 04/13/2022 Comments No Sex and Gender Information Value Date Recorded Sex Assigned at Female 10/13/2020 8:35 PM CDT Legal Sex Female 7:07 PM CDT Gender Identity Female 10/13/2020 8:35 PM CDT Sexual Orientation Straight 10/13/2020 8: 35 PM CDT COVID-19 Exposure Response Date Recorded In the last 10 days, have yo u been in contact with someone who was confirmed or suspected to have Coronavirus/COVID-19? No / Unsure 04/29/2022 12:52 PM CDT documented as of this encounter Functional Status * RETIRED Are you deaf or do you have serious difficulty hearing Answer Date of Assessment Author Status No 09/25/2021 2:24 PM LINEN ROOM SUPERVISOR Activ e * RETIRED Are you blind or do you have serious difficulty seeing, even when wearing glasses? Answer Date of Assessment Author Status No 09/25/2021 2:24 PM LINEN ROOM SUPERVISOR Activ e * Do you have serious [...] Assessment Noted Time PHQ-9 Depression Total Score: 3 04/13/20 22 10:02 AM CDT documented as of this encounter Care Teams Deputy Sheriff Court Services Relationship Specialty Start Date End Date Kristen Kline FNP [address] [place] [phone] PCP - General NURSE PRACTITIONER 05/04/18 documented as of this encounter
--- OUTSIDE RECORDS SUMMARY | 2024-12-17 15:18 | XMS_ITS | Encounter Summary ---
Author Organization [facility] Address [address] [place] [address] Care Team Providers Care Mitering Machine Operator Name Role Phone Kristen Kline BOILER INSPECTOR Primary Care Provider Encounter Details Date Type Department Care Team (Late st Contact Info) Description 10/19/2024 GoPollGo Message [employer] [facility] Medical Group Family & Internal Medicine [address] [address] [employer], [facility] Provider lab results Social History Tobacco Use Types Packs/Day Years Used Date Smoking Tobacco: Every Day Cigarettes 2 47 Smokeless Tobacco: Never Comments:Have cut down on sm oking by 1 pack. down to 2 packs. Provider to queen's counsel Alcohol Use Standard Drinks/Week Comments No [...] Assessment Author Status No 09/25/2021 2:24 PM JEWELRY CASTING MODEL MAKER Activ e * RETIRED Are you blind or do you have serious difficulty seeing, even when wearing glasses? Answer Date of Assessment Author Status No 09/25/2021 2:24 PM JEWELRY CASTING MODEL MAKER Activ e * Do you have serious difficulty walking or climbing stairs? Answer Date of Assessment Author Status No 09/25/2021 2:24 PM Rayna Luis RN Active * Do you have difficulty dressing or bathing? Answer Date of Assessment Author Status No 09/25/2021 2:24 PM JEWELRY CASTING MODEL MAKER Rayna Guerra RN Active * Because of a physical, mental, or emotional condition, do you have difficulty doing errands alone such as visiting a doctor's office or shopping? Answer Date of Assessment Author Status No 09/25/2021 2:24 PM JEWELRY CASTING MODEL MAKER Rayna Guerra RN Active documented as of this encounter Mental Status * Because of a physical, mental, or emotional condition, do you have serious difficulty concentrating, remembering, or making decisions? Answer Entry Date Author Status No 09/25/2021 2:24 PM JEWELRY CASTING MODEL MAKER Rayna Guerra RN Active documented in this [...] Total Score: 0 08/17/19 23 1:11 PM JEWELRY CASTING MODEL MAKER documented as of this encounter Care Teams Mitering Machine Operator Relationship Specialty Start Date End Date Kristen Kline FNP [address] [place] [address] PCP - General NURSE PRACTITIONER 05/04/18 documented as of this encounter
--- OUTSIDE RECORDS SUMMARY | 2024-12-17 15:18 | XMS_ITS | Encounter Summary ---
Author Organization [facility] Address [address] [place] [address] Care Team Providers Care Washateria Attendant Name Role Phone Kristen Kline [facility] Primary Care Provider [phone] Encounter Details Date Type Department Care Team (Late st Contact Info) Description 01/01/2022 [employer]car Message [employer] [facility] Medical Group Family & Internal Medicine [address] [address] [employer], [facility] Provider results Social History Tobacco Use Types Packs/Day Years Used Date Smoking Tobacco: Every Day Cigarettes 2.5 47 Smokeless Tobacco: Never Comments:Provider to residential treatment counselor Alcohol Use Standard Drinks/Week Comments No [...] suspected to have Coronavirus/COVID-19? No / Unsure 01/02/2022 5:09 PM CDT documented as of this encounter Functional Status * RETIRED Are you deaf or do you have serious difficulty hearing Answer Date of Assessment Author Status No 09/25/2021 2:24 PM CLINICAL CYTOGENETICS DIRECTOR Activ e * RETIRED Are you blind or do you have serious difficulty seeing, even when wearing glasses? Answer Date of Assessment Author Status No 09/25/2021 2:24 PM CLINICAL CYTOGENETICS DIRECTOR Activ e * Do you have serious difficulty walking or climbing stairs? Answer Date of Assessment Author Status No 09/25/2021 2:24 PM CLINICAL CYTOGENETICS DIRECTOR Rayna Guerra RN Active * Do you [...] 2:24 PM Rayna Luis RN Active * Calculated C-SSRS Risk Score (Lifetime/Recent) Answer Date of Assessment Author Status No Risk Indicated 01/02/2022 5:32 PM CDT Lilliana Silva RN Active * [place] Suicide Severity Rating Scale (Screener/Recent Self-Report) Question Answer Date of Assessment Author Status 1. Wish to be (Past 1 Month) No 01/02/2022 5:32 PM CDT Lilliana Silva RN Active 2. Non-Specific Active Suicidal Thoughts (Past 1 Month) No 01/02/2022 5:32 PM CDT Lilliana Silva RN Active 6. Suicidal Behavior (Lifetime) No 01/02/2022 5:32 PM CDT Lilliana Silva RN Active documented as of this encounter [...] able to maintain pain control General No Garcia, Shannon K, RN Health - patient able to perform ADLs independently General Ward Jeronimo RN documented as of this encounter Visit Diagnoses Not on filedocumented in this encounter Additional Health Concerns Assessment Noted Time PHQ-9 Depression Total Score: 8 12/02/19 21 11:59 AM CDT documented as of this encounter Care Teams Washateria Attendant Relationship Specialty Start Date End Date Kristen Kline FNP [address] [place] [address] PCP - General NURSE PRACTITIONER 05/04/18 documented as of this encounter
--- OUTSIDE RECORDS SUMMARY | 2024-12-17 15:18 | XMS_ITS | Encounter Summary ---
Author Organization [facility] Address [address] [place] [address] Care Team Providers Care Child Care Worker Name Role Phone Kristen Kline PRAFUL Primary Care Provider [phone] Encounter Details Date Type Department Care Team (Late st Contact Info) Description 01/15/2022 [employer] Message Enc [facility] Medical Group Family & Internal Medicine [facility] [address] [place] [address] Kristen Kline FNP [address] [place] [address] Blood draw for today Social History Tobacco Use Types Packs/Day Years Used Date Smoking Tobacco: Every Day Cigarettes 2.5 47 Smokeless Tobacco: Never Comments:Provider to crisis counselor Alcohol Use Standard Drinks/Week Comments No [...] suspected to have Coronavirus/COVID-19? No / Unsure 01/06/2022 1:11 PM CDT documented as of this encounter Functional Status * RETIRED Are you deaf or do you have serious difficulty hearing Answer Date of Assessment Author Status No 09/25/2021 2:24 PM NURSE NAVIGATOR Activ e * RETIRED Are you blind or do you have serious difficulty seeing, even when wearing glasses? Answer Date of Assessment Author Status No 09/25/2021 2:24 PM NURSE NAVIGATOR Activ e * Do you have serious [...] documented as of this encounter Care Teams Child Care Worker Relationship Specialty Start Date End Date Kristen Kline FNP [address] [place] [address] PCP - General NURSE PRACTITIONER 05/04/18 documented as of this encounter
--- OUTSIDE RECORDS SUMMARY | 2024-12-17 15:19 | XMS_ITS | Encounter Summary ---
Author Organization [facility] Address [address] [place] [address] Care Team Providers Care Information Technology Data Analyst Name Role Phone Kristen Kline [facility] Primary Care Provider [phone] Encounter Details Date Type Department Care Team (Late st Contact Info) Description 01/01/2022 PWRF Message [employer] [facility] Medical Group Family & Internal Medicine [address] [address] [employer], [facility] Provider lab results Social History Tobacco Use Types Packs/Day Years Used Date Smoking Tobacco: Every Day Cigarettes 2.5 47 Smokeless Tobacco: Never Comments:Provider to alcoholic counselor Alcohol Use Standard Drinks/Week Comments No [...] Assessment Author Status No 09/25/2021 2:24 PM MOLDING UTILITY WORKER Activ e * RETIRED Are you blind or do you have serious difficulty seeing, even when wearing glasses? Answer Date of Assessment Author Status No 09/25/2021 2:24 PM MOLDING UTILITY WORKER Activ e * Do you have serious difficulty walking or climbing stairs? Answer Date of Assessment Author Status No 09/25/2021 2:24 PM MOLDING UTILITY WORKER Rayna Guerra RN Active * Do you [...] PM CDT Lilliana Silva RN Active * [place] Suicide Severity Rating Scale (Screener/Recent Self-Report) Question [...] documented as of this encounter Care Teams Information Technology Data Analyst Relationship Specialty Start Date End Date Kristen Kline FNP [address] [place] [address] PCP - General NURSE PRACTITIONER 05/04/18 documented as of this encounter
--- OUTSIDE RECORDS SUMMARY | 2024-12-17 15:19 | XMS_ITS | Clinical Summary ---
Author Organization [facility] Address [address] [place] [address] Care Team Providers Care Hazmat Cdl A Driver Name Role Phone Jessy Kline PROFESSOR OF ANTHROPOLOGY Primary Care Provider [phone] Allergies Active Allergy Reactions Criticality Noted Date Comments Ciprofloxacin Rash Low 02/21/2012 Doxycycline Hives,Unknown Low 01/17/2015 Metronidazole Headache Medium 01/25/2022 Spoke with INSPECTOR MISSILE- ok to give PO metronidazole- exacerbates neuropathy in feet. Has been tolerating IV Flagyl. Influenza Vac Split Quad Hives,Unknown High 08/19/2017 Iodine Unknown Levofloxacin Hives,Nausea Only Medium 09/21/2021 Shellfish-Derived Products Hives Medium 07/03/2020 Medications aspirin 81 MG tabletIndication s:Hypertension,H yperlipidemia Take 1 tablet (81 mg total) by mouth daily. 90 tablet 1 019 Active cannabidiol 100 MG/ML oral solution Take 5 mg/kg by mouth 2 (two) times daily. Active fish oil 1000 MG Cap capsuleIndicatio ns:Mixed hyperlipidemia Take 1 capsule (1,000 mg total) by mouth daily. 18 capsule 3 020 Active Glucose Blood (CONTOUR TEST) test stripIndications :Type 2 diabetes mellitus with diabetic polyneuropathy, with long-term current use of insulin ([facility] HHS/HCC) 1 strip by Other route as needed. Use as instructed 100 strip 2 021 Active Insulin Pen Needle (ADVOCATE INSULIN PEN NEEDLES) 31G X 8 MM MiscIndications: Type 2 diabetes mellitus with diabetic mononeuropathy, with long-term current use of insulin ([facility]) Use with insulin administration up to 3 times daily. 100 each 11 021 Active Glucose Blood (CONTOUR TEST) test stripIndications :Type 2 diabetes mellitus with diabetic polyneuropathy, with long-term current use of insulin ([facility]) 1 strip by Other route 5 (five) times daily. Use as instructed// This is just Contour strips, not the Contour next 500 strip 3 Active Continuous Glucose Sensor (FREESTYLE RAY 3 SENSOR) MiscIndications: Type 2 diabetes mellitus with diabetic polyneuropathy, with long-term current use of insulin ([facility]) Monitor blood sugars closely. 2 each 12 Active Continuous Glucose Car Scrubber (FREESTYLE RAY 3 READER) DeviceIndication s:Type 2 diabetes mellitus with diabetic polyneuropathy, with long-term current use of insulin ([facility]) Monitor blood sugars daily 1 each 024 Active mometasone (NASONEX) 50 MCG/ACT nasal sprayIndications :Sinus congestion 2 sprays by Nasal route daily. 17 g 3 Active famotidine (PEPCID) 20 MG tabletIndication s:Gastroesophage al reflux disease without esophagitis Take 1 tablet (20 mg total) by mouth 2 (two) times daily. 180 tablet 3 Active Alcohol Swabs (ALCOHOL PREP) PadsIndications: Type 2 diabetes mellitus with diabetic polyneuropathy, with long-term current use of insulin ([facility]) Use daily with insulin 100 each 3 024 Active Continuous Glucose Sensor (FREESTYLE RAY 3 SENSOR) MiscIndications: Type 2 diabetes mellitus with diabetic polyneuropathy, with long-term current use of insulin ([facility]) 1 Units by Does not apply route every 14 (fourteen) days. 6 each 3 024 Active albuterol (PROVENTIL) (2.5 MG/3ML) 0.083% nebulizer solutionIndicati ons:Other emphysema ([facility]) Take 3 mLs (2.5 mg total) by nebulization 4 (four) times daily. 1080 mL 3 025 Active Continuous Glucose Sensor (FREESTYLE RAY 3 PLUS SENSOR) MiscIndications: Type 2 diabetes mellitus with diabetic polyneuropathy, with long-term current use of insulin ([facility]) 2 Devices by Does not apply route every 14 (fourteen) days. 2 each 5 025 Active hydrOXYzine (ATARAX) 25 MG tabletIndication s:Anxiety Take 1 tablet (25 mg total) by mouth 4 (four) times daily as needed. Last 4 of ss# [id number] 90 tablet 1 025 Active naloxone (NARCAN) 4 MG/0.1ML nasal sprayIndications :High risk medication use 1 spray by Nasal route as needed for Opioid reversal. may repeat every 2 to 3 minutes in alternating nostrils until medical assistance becomes available 1 each 025 2025 Active traMADol (ULTRAM) 50 MG tabletIndication s:Chronic Pain Take 1 tablet (50 mg total) by mouth 2 (two) times daily as needed for Pain. Indications: Chronic Pain 30 tablet 2 025 Active triamcinolone (KENALOG) 0.1 % creamIndications :Hydradenitis Apply 1 each topically 2 (two) times daily. Apply topically to foot twice daily 454 g 3 025 Active ALPRAZolam (XANAX) 0.25 MG tabletIndication s:Anxiety Take one half to one tablet twice daily as needed.Last 4 of ss#[id number] 180 tablet 1 025 Active albuterol sulfate HFA (VENTOLIN HFA) 108 (90 Base) MCG/ACT inhalerIndicatio ns:Other emphysema ([facility]) Inhale 2 puffs into the lungs every 6 (six) hours as needed for Wheezing. Ss [id number] 54 g 3 025 Active cloNIDine (CATAPRES) 0.1 MG tabletIndication s:Primary hypertension One tablet twice daily 135 tablet 3 025 Active esomeprazole (NEXIUM) 40 MG capsuleIndicatio ns:Gastroesophag eal reflux disease, unspecified whether esophagitis present Take 1 capsule (40 mg total) by mouth daily. Last 4 of ss#[id number] 90 capsule 3 025 Active insulin glargine (LANTUS) 100 UNIT/ML injection (PEN)Indications :Type 2 diabetes mellitus with diabetic polyneuropathy, with long-term current use of insulin ([facility]) Inject 35 Units into the skin 2 (two) times a day. 60 mL 025 Active insulin lispro, 1 Unit Dial, (HUMALOG KWIKPEN) 100 UNIT/ML injection (PEN)Indications :Type 2 diabetes mellitus with diabetic polyneuropathy, with long-term current use of insulin ([facility]) Inject 30 Units into the skin 3 (three) times daily before meals. 30 units per meal TID 90 mL 025 Active Insulin Pen Needle (GNP CLICKFINE PEN NEEDLES) 31G X 6 MM MiscIndications: Type 2 diabetes mellitus with diabetic polyneuropathy, with long-term current use of insulin ([facility]) Use 5 times a day with insulin pen 200 each 025 Active levothyroxine (SYNTHROID) 112 MCG tabletIndication s:Acquired hypothyroidism Take 1 tablet (112 mcg total) by mouth daily. On Saturdays and 48 tablet 025 Active mupirocin (BACTROBAN) 2 % ointmentIndicati ons:Hydradenitis Apply topically 3 (three) times daily for 7 days. To face 90 g 025 Active Olmesartan Medoxomil-HCTZ 40-25 MG TabIndications:P rimary hypertension Take 1 tablet by mouth daily. Last 4 of # [id number] 90 tablet 025 Active rosuvastatin (CRESTOR) 40 MG tabletIndication s:Mixed hyperlipidemia Take 1 tablet (40 mg total) by mouth nightly at bedtime. Last 4 of ss#[id number] 90 tablet 025 Active SYNTHROID 100 MCG tabletIndication s:Acquired hypothyroidism Take 1 tablet (100 mcg total) by mouth daily. On Wednesdays and Fridays 36 tablet 3 025 Active spironolactone (ALDACTONE) 100 MG tabletIndication s:Primary hypertension Take 2 tablets (200 mg total) by mouth daily. Last 4 of #[id number] 180 tablet 025 Active fluconazole (DIFLUCAN) 150 MG tabletIndication s:Yeast infection Take one tab let now and may repeat in 72 2 tablet 025 Active metoprolol succinate ER (TOPROL-XL) 100 MG 24 hr tabletIndication s:Primary hypertension TAKE 1 AND 1/2 TABLETS(150 MG) BY MOUTH TWICE DAILY 270 tablet 1 025 Active budesonide-formo terol (SYMBICORT) 160-4.5 MCG/ACT inhalerIndicatio ns:Other emphysema ([facility]) Inhale 2 puffs into the lungs 2 (two) times daily. 30.6 g 1 025 Active busPIRone (BUSPAR) 5 MG tabletIndication s:Anxiety Take 1 tablet (5 mg total) by mouth 2 (two) times daily. 180 tablet 1 025 Active lisinopril (PRINIVIL) 10 MG tabletIndication s:Primary hypertension Take 1 tablet (10 mg total) by mouth daily. 90 tablet 1 025 Active azithromycin (ZITHROMAX Z-LEO) 250 MG tabletIndication s:Upper respiratory tract infection, unspecified type Take 2 tablets (500 mg total) by mouth daily for 1 day, THEN 1 tablet (250 mg total) daily for 4 days. 6 tablet 025 2024 Active neomycin-polymyx in-hydrocortison e (CORTISPORIN) otic solutionIndicati ons:Right ear pain Place 3 drops in ear(s) 4 (four) times daily for 10 days. 10 mL 025 2024 Active neomycin-polymyx in-hydrocortison e otic solutionIndicati ons:Acute otitis externa of both ears, unspecified type Place 3 drops in ear(s) 4 (four) times daily for 10 days. 10 mL 021 2024 Discontinued(R eorder) budesonide-formo terol (SYMBICORT) 160-4.5 MCG/ACT inhalerIndicatio ns:Other emphysema ([facility]) Inhale 2 puffs into the lungs 2 (two) times daily. 10.2 g 025 04/22/ 2025 Discontinued(R eorder) lisinopril (PRINIVIL) 10 MG tabletIndication s:Primary hypertension Take 1 tablet (10 mg total) by mouth daily. 90 tablet 025 2024 Discontinued(R eorder) busPIRone (BUSPAR) 5 MG tabletIndication s:Anxiety Take 1 tablet (5 mg total) by mouth 2 (two) times daily. Last 4 of ss#[id number] 60 tablet 025 2024 Discontinued(D uplicate Med) metoprolol succinate ER (TOPROL-XL) 100 MG 24 hr tabletIndication s:Primary hypertension TAKE 1 AND 1/2 TABLETS(150 MG) BY MOUTH TWICE DAILY 270 tablet 025 2024 Discontinued Active Problems Problem Noted Date Diagnosed Date Thyroid nodule 02/01/2024 Memory deficit 02/01/2024 Numbness and tingling of both feet 02/01/2024 Arthritis 01/01/2023 PVD (peripheral vascular disease) 09/07/2022 Dry skin 09/07/2022 Herpes zoster without complication 09/07/2022 Aortic atherosclerosis 04/27/2022 Vaginal yeast infection 04/13/2022 Skin lesion of left external ear 04/13/2022 Severe malnutrition (HHS/HCC) 02/26/2022 Rash and nonspecific skin eruption 12/13/2021 Bilateral ovarian cysts 12/02/2021 Left ear pain 10/30/2021 High carcinoembryonic antigen (CEA) 10/19/2021 Abscess of pelvis 10/19/2021 Pelvic abscess in female 10/19/2021 Leukocytosis, unspecified type 10/07/2021 Hypokalemia 10/07/2021 Right tubo-ovarian abscess 10/07/2021 Ovarian mass, right 10/07/2021 Abdominal pain 09/21/2021 Adnexal cyst 09/12/2021 Multiple actinic keratoses 01/01/2021 Chronic right shoulder pain 12/03/2020 Pain in right buttock 12/03/2020 History of chronic constipation 12/03/2020 Hx of hypokalemia 10/23/2020 Perforated bowel (CMS/HCC HHS/HCC) 10/23/2020 Diverticulitis 10/13/2020 Atrophic vaginitis 08/15/2020 Menopause present 08/15/2020 Simple endometrial hyperplasia 08/15/2020 Vulvitis 08/15/2020 Chronic dryness of right eye 08/15/2020 Keratoconjunctivitis sicca 08/15/2020 Left hip pain 04/02/2020 Hemangioma of spine 07/10/2019 Current smoker 07/10/2019 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[facility]) 05/01/20 19 Arthralgia of right elbow 04/16/2019 Left knee pain, unspecified chronicity 9 Neuropathy 03/05/2019 Salivary stones 10/25/2018 Sialolithiasis 10/25/2018 Primary osteoarthritis of right knee 07/07/2018 Adrenal adenoma 05/29/2018 Abnormal bleeding time 05/24/2018 Multiple allergies 05/24/2018 IBS (irritable bowel syndrome) 05/22/2018 Migraines 05/22/2018 Right knee pain 04/26/2018 Class 2 severe obesity due t o excess calories with serious comorbidity and body mass index (BMI) of 35.0 to 35.9 in adult 12/19/2017 Polyarthralgia 09/30/2017 LIDA (obstructive sleep apnea) 05/31/2017 Nicotine dependence 05/28/2017 Polymyalgia ([facility]) 05/11/2016 Vitamin B 12 deficiency 05/23/2015 Hydradenitis 01/16/2015 Scleritis and episcleritis 07/23/2014 Asthma ([facility]) 05/09/2013 Essential hypertriglyceridemia 02/12/2013 Allergic rhinitis 12/01/2012 Endometrial hyperplasia, unspecified 09/18/2012 Internal hemorrhoids 08/28/2012 Anxiety 05/23/2012 Pulmonary emphysema ([facility]) 05/23/2012 Vitamin D deficiency 05/16/2012 Type 2 diabetes mellitus ([facility]) 05/01 Hypochromic-microcytic anemia 04/05/2012 Gastroesophageal reflux disease 02/21/2012 Hyperlipidemia 02/21/2012 Primary hypertension 02/21/2012 Hypothyroidism 02/21/2012 Resolved Problems Problem Noted Date Diagnosed Date Resolved Date Viral hepatitis C 05/28/2021 04/27/2022 Recurrent acute suppurative otitis media of right ear without spontaneous rupture of tympanic membrane 01/01/2021 05/30/2021 Foreign body of right index finger 12/03/2020 05/30/2021 Elevated blood pressure reading 12/03/2020 05/30/2021 Candidal vulvovaginitis 08/15/202005/03 Cough 07/10/2019 05/30/2021 Need for 23-polyvalent pneum ococcal polysaccharide vaccine 07/10/2019 04/11/2020 Chronic otitis externa of le ft ear, unspecified type 05/01/2019 05/30/2021 Antibiotic-induced yeast infection 05/01/2019 12/30/2022 Chronic swimmer's ear of right side 04/16/2019 05/30/2021 Facial cellulitis 10/25/2018 05/30/2021 Cellulitis of breast 09/30/2017 021 Cephalalgia 09/14/2012 05/30/2021 Metrorrhagia 08/07/2012 05/30/2021 Encounters Date Type Department Care Team Description 12/17/2024 2:00 PM CDT Office Visit [facility] [address] [address] Jessy Kline FNP Ear Problem (Patient presenting to the office right ear discomfort- ); Thyroid (Would like to do TSH draw today ); Diabetes (Per patients CGM- 9.5% is her A1C - - ) 12/17/2024 Travel 12/03/2024 Telephone [facility] & Internal [address] [address] Jessy Kline FNP Orders 11/27/2024 Scan [facility] Scanned, [facility] 11/27/2024 Telephone [facility] [address] [address] Jessy Kline FNP Orders 11/19/2024 Scan [facility] Scanned, [facility] 11/16/2024 11:07 AM CDT - 11/16/2024 11:59 PM CDT Hospital Encounter [address] [address] Jessy Kline FNP Discharge Disposition: Home or Self Care (Routine Discharge) 11/16/2024 Results Follow-Up [facility] [address] [address] Jessy Kline FNP THYROXINE, FREE (FT4), THYROID STIM HORMONE TSH 11/13/[address] [address] Jessy Kline FNP Information; Advice 11/13/[address] [address] Jessy Kline FNP Information 11/11/2024 Scan [employer] [facility] Scanned, [facility] 11/08/[address] [address] Jessy Kline FNP Medication Request 11/05/2024 12:00 PM CDT Home Care Visit [facility] [address] [place] [address] [place] [address] Ayse Smith RN SN NON ADMIT SOC 11/05/[address] [address] Jessy Kline FNP Lab Results 11/05/[address] [address] Jessy Kline FNP Referral 11/01/2024 1:40 PM CDT Office Visit [address] [address] Jessy Kline FNP Diabetes; Hypertension; Cough (Presents with a cough that is different than her COPD cough- she thinks she my have Bronchitis - ); Other (Costochondritis- patient has hx of this and presents with same sx- ); Ear Problem (Ear pain- right ear ) 11/01/2024 - 11/01/2024 11:59 PM CDT Hospital Encounter [facility] [address] [place] [address] Jessy Kline FNP Discharge Disposition: Home or Self Care (Routine Discharge) 11/01/2024 Telephone [facility] [place] Scheduling [address] [place] [address] Jessy Kline FNP Advise 11/01/2024 Travel 10/19/2024 [place] Message Enc [facility] Family [facility] Internal Medicine [address] [address] [facility] Provider lab results 10/17/2024 6:49 AM CDT - 10/17/2024 11:59 PM CDT Hospital Encounter [facility] [address] [place] [address] Jessy Kline FNP Discharge Disposition: Home or Self Care (Routine Discharge) 09/26/2024 6:25 AM BACK END ARCHITECT - 09/26/2024 11:59 PM BACK END ARCHITECT Hospital Encounter [facility] [address] [place] [address] Jessy Kline FNP Discharge Disposition: Home or Self Care (Routine Discharge) from Last 3 Months Immunizations Immunization Administration Dates Next Due Pneumococcal (Pneumovax 23) 07/06/2019 Pneumococcal (Prevnar 13) 05/24/2018 Tdap (Adacel) 12/30/2022 Family History Medical History Relation Comments Defects Daughter 1 Defects Daughter 2 Mental Health Daughter 2 Alcohol Abuse Father Arthritis Father Asthma Father COPD Father Cancer Father Heart Disease Father Hypertension Father Diabetes Maternal Aunt 1 Cancer Maternal Aunt 2 Hypertension Maternal Aunt 2 Diabetes Maternal Aunt 3 Stroke Maternal Aunt 3 Cancer Maternal Grandmother Hypertension Maternal Grandmother Stroke Maternal Grandmother Vision loss Maternal Grandmother Alcohol Abuse Mother Cancer Mother Uterine Hypertension Mother Migraines Mother Miscarriages / Stillbirths Mother Relation Status Comments Daughter 1 Daughter 2 Alive Father Maternal Aunt 1 Maternal Aunt 2 Maternal Aunt 3 Maternal Grandmother Mother Social History Tobacco Use Types Packs/Day Years Used Date Smoking Tobacco: Every Day Cigarettes 2 47 Smokeless Tobacco: Never Tobacco Cessation:Ready to Q uit: No; Counseling Given: Yes Comments:Have cut down on smoking by 1 pack. down to 2 packs. Provider to apprise counselor Alcohol Use Standard Drinks/Week Comments Never [...] Orientation Straight 10/13/2020 8: 35 PM CDT Last Filed Vital Signs Vital Sign Reading [...] Mass Index 36.71 12/17/2024 2:11 PM CDT Plan of Treatment Health Maintenance Due Date Last Done Comments Annual Physical 1963 Colorectal Cancer Screening Colonoscopy (10 Years) 02/05/2015 02/05/2005 Lung Cancer Screening 03/25/2023 03/25/2022 , 05/17/2019, 06/21/2017, Additional history exists COVID-19 Vaccine ( - 2023- season) 2024 Pneumococcal Vaccine: 50+ Years (3 of 3 - PCV20 or PCV21) 07/06/2024 07/06/2019, 05/24/2018 Mammogram Screening 01/23/2025 Postpone d from 2001 (Patient Refused) RSV Immunization or 60+ Years (1 - Risk 60-74 years 1-dose series) 01/23/2025 Postponed fro m 2021 (Patient Refused) Zoster Vaccines (1 of 2) 01/23/2025 Pos tponed from 12/13/2011 (Patient Refused) Hemoglobin A1C 01/31/2025 11/01/2024, 12/31, 11/22/2022, Additional history exists Kidney Health Evaluation 11/01/2025 11/01/2024 Lipid Panel 11/01/2025 11/01/2024, 12/31, 11/22/2022, Additional history exists Diabetes: Retinopathy Eye Exam 12/01/2025 07/16/2021 Postponed from 07/16/2023 (Future Appointment) DTaP, Tdap and Td Vaccines (2 - Td or Tdap) 12/30/2032 12/30/2022 Hepatitis C Completed 04/27/2022, 01/29, 10/08/2021 PHQ-2 (Physician Mcgrath) Completed 11/01/2024 Meningococcal B Vaccine Aged Out No l onger eligible based on patient's age to complete this topic Meningococcal Vaccine Aged Out No asia mahogany eligible based on patient's age to complete this topic RSV Immunizations Under 20 Months Aged Out No longer eligible based on patient's age to complete this topic Goals Goal Patient Goal Type Associated Problems Recent Progress Patient-Stated? Author Monitor - able to maintain pain control General No Shannon Garcia, RN Health - patient able to perform ADLs independently General No Ward Sebastian RN Procedures Procedure Name Priority Date/Time Associated Diagnosis Comments THYROID STIM HORMONE TSH Routine 11/15/2024 8:15 PM CDT Acquired hypothyroidism THYROXINE, FREE (FT4) Routine 11/15/2024 8:15 PM CDT Acquired hypothyroidism CBC W/DIFF AUTOMATED Routine 11/01/2024 3:01 PM CDT Type 2 diabetes mellitus with diabetic polyneuropathy, with long-term current use of insulin ([facility]) Primary hypertension Mixed hyperlipidemia LIPID PANEL Routine 11/01/2024 3:01 PM CDT Type 2 diabetes mellitus with diabetic polyneuropathy, with long-term current use of insulin ([facility]) Mixed hyperlipidemia VITAMIN D, 25 OH Routine 11/01/2024 3:01 PM CDT Vitamin D deficiency URIC ACID BLOOD Routine 11/01/2024 3:01 PM CDT Type 2 diabetes mellitus with diabetic polyneuropathy, with long-term current use of insulin ([facility]) Primary hypertension Mixed hyperlipidemia ALBUMIN URINE RANDOM W/CREATININE Routine 11/01/2024 3:01 PM CDT Type 2 diabetes mellitus with diabetic polyneuropathy, with long-term current use of insulin ([facility]) Primary hypertension COMPREHENSIVE METABOLIC PANEL Routine 11/01/2024 3:01 PM CDT Type 2 diabetes mellitus with diabetic polyneuropathy, with long-term current use of insulin ([facility]) Primary hypertension Mixed hyperlipidemia CK (CPK) Routine 11/01/2024 3:01 PM CDT Type 2 diabetes mellitus with diabetic polyneuropathy, with long-term current use of insulin ([facility]) Primary hypertension Mixed hyperlipidemia VITAMIN B-12 Routine 11/01/2024 3:01 PM CDT Type 2 diabetes mellitus with diabetic polyneuropathy, with long-term current use of insulin ([facility]) Primary hypertension Vitamin B 12 deficiency FOLIC ACID SERUM Routine 11/01/2024 3:01 PM CDT Type 2 diabetes mellitus with diabetic polyneuropathy, with long-term current use of insulin ([facility]) Primary hypertension Vitamin B 12 deficiency MAGNESIUM Routine 11/01/2024 3:01 PM CDT Primary hypertension THYROID STIM HORMONE TSH Routine 11/01/2024 3:01 PM CDT Acquired hypothyroidism THYROXINE, FREE (FT4) Routine 11/01/2024 3:01 PM CDT Acquired hypothyroidism COLLECTION VENOUS BLOOD VENIPUNCTURE Routine 11/01/2024 2:46 PM CDT Type 2 diabetes mellitus with diabetic polyneuropathy, with long-term current use of insulin ([facility] HHS/HCC) Acquired hypothyroidism Primary hypertension Mixed hyperlipidemia Vitamin D deficiency Vitamin B 12 deficiency URINALYSIS AUTO DIP Routine 11/01/2024 2 :15 PM CDT Chronic bilateral low back pain without sciatica Dysuria HEMOGLOBIN, GLYCOSYLATED Routine 11/01/2024 2:14 PM CDT Type 2 diabetes mellitus with diabetic polyneuropathy, with long-term current use of insulin ([facility]) COLLECT.CAPILLARY (FNGR,HEEL,EAR) Routine 11/01/2024 1:58 PM CDT Type 2 diabetes mellitus with diabetic polyneuropathy, with long-term current use of insulin ([facility]) THYROID STIM HORMONE TSH Routine 10/17/2024 8:25 PM CDT Acquired hypothyroidism THYROXINE, FREE (FT4) Routine 10/17/2024 8:25 PM CDT Acquired hypothyroidism THYROID STIM HORMONE TSH Routine 09/26/2024 4:44 AM BACK END ARCHITECT Acquired hypothyroidism THYROXINE, FREE (FT4) Routine 09/26/2024 4:44 AM BACK END ARCHITECT Acquired hypothyroidism HEPATITIS C ANTIBODY Routine 10/08/2021 12:47 PM BACK END ARCHITECT Need for hepatitis C screening test DIABETIC RETINOPATHY EXAM (NEGATIVE)(SCAN ORDER) Routine 07/16/2021 CT CHEST WO CONT LOW DOSE Routine 05/17/2019 Encounter for screening for lung cancer COLONOSCOPY GENERIC (SCAN ORDER) Routine 02/05/2005 from Last 3 Months or Most Recently Relevant to Health Maintenance Results * THYROXINE, FREE (FT4) (11/15/2024 8:15 PM CDT) Only the most recent of4 resultswithin the time period is included. FREE T4 1.17 0.76 - 1.46 NG/DL 11/16/2024 11:55 AM CDT [facility] 11/15/2024 8:15 PM CDT Jessy Kline [facility] Final Result [facility] [address] [place] [address], [place] [phone] * THYROID STIM HORMONE TSH (11/15/2024 8:15 PM CDT) Only the most recent of4 resultswithin the time period is included. [facility] TSH 1.862 0.358 - 3.74 uIU/ML 11/16/2024 11:55 AM CDT [facility] Comment: HIGH DOSES OF BIOTIN MAY INTERFERE WITH THIS TEST RESULT. CORRELATION TO CLINICAL HISTORY AND PRESENTATION RECOMMENDED. 11/15/2024 8:15 PM CDT Jessy Kline [facility] Final Result Performing Organization Address City/[facility]/ZIP Co de Phone Number [facility] [address] [place] [address], [place] [phone] * VITAMIN B-12 (11/01/2024 3:01 PM CDT) Pathologist [facility] VITAMIN B12 S/P/B [phone] PG/ML 11/02/2024 11:53 AM CDT [facility] 11/01/2024 3:01 PM CDT Jessy Kline [facility] Final Result [facility] [address] [place] [address], [place] [phone] * (ABNORMAL) ALBUMIN URINE RANDOM W/CREATININE (11/01/2024 3:01 PM CDT) MICROALBUMIN (U) 1,549.8(H ) <20 MG/L 11/02/2024 10:12 AM CDT [facility] CREATININE RANDOM (U) 34.0 MG/DL 11/02/2024 9:34 AM CDT [facility] ALBUMIN/CREAT RATIO 4,558.2(H ) <30 MG/G 11/02/2024 10:12 AM CDT [facility] [id number]||2024-12-17 18:54:00|XR_ITS|HATCHG|Imaging|[id number]|"EXAM: XR knee RT 3V DATE: 12/17/2024 15:58 HISTORY: KNEE PAIN . COMPARISON: 11/15/2018, images only. FINDINGS: Normal mineralization. No fracture or dislocation. No lytic or blastic lesion. Moderate me dial joint space narrowing. Mild medial compartment osteophytosis. Minimal lateral and patellofemoral compartment osteophytosis. Moderate Achilles and patellar enthesopathy. No erosion or periosteal fuentes nge. Scattered vascular calcifications. IMPRESSION: Tricompartmental osteoarthritic changes, moderate in the medial compartment. Reviewed, dictated and finalized at location K. IMPRESSION: Tricompartmental osteoarthritic changes, moderate in the medial com partment. "
--- OUTSIDE RECORDS SUMMARY | 2024-12-17 15:19 | XMS_ITS | Encounter Summary ---
Author Organization [facility] Address [address] [place] [id number] Care Team Providers Care Weight Reducing Technician Name Role Phone Kristen Kline PRAFUL Primary Care Provider [phone] Encounter Details Date Type Department Care Team (Late st Contact Info) Description 12/06/2021 VASS Technologiest Message Enc [facility] Family [facility] [address] [place] [address] AguedaKristen johnson FNP [address] [place] [address] Covid Social History Tobacco Use Types Packs/Day Years Used Date Smoking Tobacco: Every Day Cigarettes 2.5 47 Smokeless Tobacco: Never Comments:Provider to activities counselor Alcohol Use Standard Drinks/Week Comments No [...] Assessment Author Status No 09/25/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
--- OUTSIDE RECORDS SUMMARY | 2024-12-17 15:19 | XMS_ITS | Clinical Summary ---
Author Organization [facility] at the [facility] Office Center Address [address] [place] [address] Care Team Providers Care Dentures Lab Technician Name Role Phone Jessy Kline NP Primary Care Provider [phone] Kristen Ortiz DIRECTOR CHANNEL Unavailable [phone] Allergies Active Allergy Reactions Criticality Noted Date Comments Ciprofloxacin Hives,Rash Medium 02/21/2012 Hives Doxycycline Hives,Unknown Medium 01/17/2015 Hives Metronidazole Hives,Headache Medium 01/25/2022 Spoke with DIRECTOR CHANNEL- ok to give PO metronidazole- exacerbates neuropathy in feet. Has been tolerating IV Flagyl. Influenza Virus Vaccine Quad 2018- (5 Years Up) Hives High 08/19/2017 Iodine Hives Medium Levofloxacin Hives,Nausea only Medium 09/21/2021 Shellfish Containing Products Hives Medium 07/03/2020 Ondansetron Other (See comments) Low 02/24/2022 States Heart rate changes with med. Medications busPIRone (BUSPAR) 10 mg tablet buspirone 10 mg tablet Active cloNIDine (CATAPRES) 0.1 mg tablet take 1 in the am and 1 in the evening 04/05/20 22 Active metoprolol XL (TOPROL-XL) 100 mg 24 hr tablet metoprolol succinate ER 100 mg tablet,extended release 24 hr TK 1 AND 1/2 TS PO QAM AND 1 T QHS Active rosuvastatin (CRESTOR) 40 mg tablet daily Active aspirin 81 mg enteric coated tablet Take 81 mg by mouth daily Active loratadine (CLARITIN ORAL) Take by mouth Active budesonide-for moterol (SYMBICORT) 160-4.5 mcg/actuation inhaler Inhale 2 puffs 2 (two) times a day Rinse mouth with water after use. Do not swallow. Active albuterol HFA (PROVENTIL HFA,VENTOLIN HFA,PROAIR HFA) 90 mcg/actuation inhaler Inhale 2 puffs every 6 (six) hours as needed for wheezing Active ALPRAZolam (XANAX) 0.25 mg tablet TAKE 1/2 TO 1 TABLET BY MOUTH TWICE DAILY NEEDED 10/13/19 22 Active docusate sodium (COLACE) 100 mg capsule DOK 100 mg capsule TAKE ONE CAPSULE BY MOUTH TWICE DAILY NEEDED FOR CONSTIPATION Active fluticasone propionate (FLONASE) 50 mcg/actuation nasal spray 1 spray every 12 hours 03/05/20 20 Active hydrOXYzine (ATARAX) 25 mg tablet 25 mg every 6 hours 03/05/20 20 Active triamcinolone (KENALOG) 0.1 % cream triamcinolone acetonide 0.1 % topical cream APPLY TOPICALLY TO FOOT TWICE DAILY 09/25/19 21 Active levothyroxine (SYNTHROID) 100 mcg tablet Take 1 tablet (100 mcg total) by mouth every other day 15 tablet 11 01/30/20 22 Active levothyroxine (SYNTHROID) 112 mcg tablet Take 1 tablet (112 mcg total) by mouth every other day 15 tablet 11 01/31/20 22 Active lidocaine (LIDODERM) 5 % Place 2 patches on the skin daily Remove & discard patch within 12 hours or as directed by MD. 60 patch 01/29/20 22 Active pen needle, diabetic 32 gauge x 5/32 needle Use as directed twice a day 100 each 01/29/20 22 Active pen needle, diabetic 32 gauge x 5/32 needle Use as directed 3 times a day. 100 each 01/29/20 22 Active fluorometholon e (FML) 0.1 % ophthalmic suspension fluorometholone 0.1 % eye drops,suspension SHAKE LIQUID AND INSTILL 1 DROP IN RIGHT EYE THREE TIMES DAILY Active acetaminophen 500 mg capsuleIndicat ions:Pain Take 2 capsules (1,000 mg total) by mouth every 6 (six) hours as needed (pain) 60 tablet 02/15/20 22 Active polyethylene glycol (MIRALAX) 17 gram packetIndicati ons:constipati on Take 1 packet (17 g total) by mouth 2 (two) times a day 60 packet 2 02/15/20 Active prochlorperazi ne (COMPAZINE) 10 mg tablet Take 1 tablet (10 mg total) by mouth every 6 (six) hours as needed for nausea 20 tablet 02/15/[address] (PROTONIX) 40 mg EC tabletIndicati ons:Treatment of Non-Bleeding Gastric Disorder Take 1 tablet (40 mg total) by mouth daily 30 tablet 2 02/16/20 Active insulin lispro (HumaLOG, ADMELOG) 100 unit/mL pen for injection Night time sliding scale insulin. Inject once daily at night per the following chart: Blood Glucose (mg/dL) 199 or less: no insulin, 200 - 249: 1 unit, 250 - 299: 2 units, 300 - 349: 3 units, Greater than 350: 4 units and contact physician for insulin order adjustment. 15 mL 02/15/20 Active insulin lispro (HumaLOG, ADMELOG) 100 unit/mL pen for injection Inject 1-4 Units under the skin 3 (three) times a day with meals (1 unit for every 50 mg/dL blood glucose greater than 150 mg/dL up to max 4 units) Refer to After Visit Summary for Sliding Scale Insulin Instructions. 15 mL 02/15/20 Active insulin glargine (insulin glargine) 100 unit/mL (3 mL) pen for injection Inject 30 Units under the skin 2 (two) times a day 18 mL 02/15/20 Active simethicone (MYLICON) 125 mg chewable tablet Take 1 tablet (125 mg total) by mouth every 6 (six) hours as needed for flatulence 30 tablet 2 02/15/20 Active oxyCODONE (ROXICODONE) 5 mg immediate release tabletIndicati ons:Pain Take 0.5-1 tablets (2.5-5 mg total) by mouth every 4 (four) hours as needed for pain 10 tablet 02/15/20 Active heparin 100 unit/mL solutionIndica tions:Maintain Patency of Indwelling Vascular Catheter Administer 5 mL (500 Units total) into catheter once a week 02/26/20 Active sodium chloride 0.9% injection 10 mL by other route every 12 (twelve) hours 10 mL 11 03/05/20 Active losartan (COZAAR) 25 mg tablet Take 1 tablet (25 mg total) by mouth daily 30 tablet 11 03/07/20 Active hydroCHLOROthi azide (HYDRODIURIL) 25 mg tablet Take 1 tablet (25 mg total) by mouth daily 30 tablet 11 03/07/20 Active insulin glargine (insulin glargine) 100 unit/mL (3 mL) pen for injection Inject 20 Units under the skin every morning 15 mL 1 03/07/20 Active predniSONE (DELTASONE) 50 mg tabletIndicati ons:hypersensi tivity drug reaction Take 1 tab (50mg) at 19 hours, 13 hours, 7 hours, and [address] scan. 4 tablet 03/22/20 Active potassium chloride ER (KLOR-CON) 20 mEq CR tablet Take 2 tabs (40mEq) now and 2 tabs (40mEq) tonight, then take 1 tab (20mEq) daily. 30 tablet 03/29/20 Active Active Problems Problem Noted Date Diagnosed Date Postoperative visit 03/11/2022 Severe malnutrition 02/26/2022 TOA (tubo-ovarian abscess) 01/25/2022 Adnexal mass 01/15/2022 Bilateral ovarian cysts 12/02/2021 Pelvic abscess in female 10/19/2021 High carcinoembryonic antigen (CEA) 10/19/2021 Hypokalemia 10/07/2021 Ovarian mass, right 10/07/2021 Right tubo-ovarian abscess 10/07/2021 Leukocytosis 10/07/2021 Cyst of right ovary 09/12/2021 Viral hepatitis C 05/28/2021 Multiple actinic keratoses 01/01/2021 Chronic right shoulder pain 12/03/2020 Perforated bowel 10/23/2020 Diverticulitis 10/13/2020 Chronic dryness of right eye 08/15/2020 Current smoker 07/10/2019 Hemangioma of spine 07/10/2019 Opportunistic mycosis 05/01/2019 Arthralgia of right elbow 04/16/2019 Neuropathy 03/05/2019 Sialolithiasis 10/25/2018 Primary osteoarthritis of right knee 07/07/2018 Adrenal adenoma 05/29/2018 Abnormal bleeding time 05/24/2018 IBS (irritable bowel syndrome) 05/22/2018 Migraines 05/22/2018 Severe obesity 12/19/2017 Polyarthralgia 09/30/2017 LIDA (obstructive sleep apnea) 05/31/2017 Polymyalgia 05/11/2016 Vitamin B 12 deficiency 05/23/2015 Hidradenitis 01/16/2015 Scleritis and episcleritis 07/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 Asthma 05/09/2013 Essential hypertriglyceridemia 02/12/2013 Endometrial hyperplasia, unspecified 09/18/2012 Simple endometrial hyperplasia 09/18/2012 Hyperlipidemia 09/14/2012 Diabetes mellitus 09/14/2012 Cephalalgia 09/14/2012 Hypertension 09/14/2012 Gastroesophageal reflux disease 09/14/2012 Pulmonary emphysema 09/14/2012 Internal hemorrhoids 08/28/2012 Anxiety 05/23/2012 Vitamin D deficiency 05/16/2012 Hypochromic-microcytic anemia 04/05/2012 Hypothyroidism 02/21/2012 Immunizations Immunization Administration Dates Next Due Pneumococcal Conjugate PCV 13 05/24/2018 Pneumococcal Polysaccharide PPV23 07/06/2019 Surgical History Surgery Date Site/Laterality Comments CA DELIVERY ONLY Section - (Added by TW Conv) CA DILATION & CURETTAGE DX&/ THER NONOBSTETRIC Dilation And Curettage - (Added by TW Conv) THYROID SURGERY Thyroid Surgery - (Added by TW Conv) HYSTERECTOMY IMAGE GUIDED DRAINAGE PERITO GIOVANNA OR RETROPERITONEAL FLUID COLLECTION 02/25/2022 N/A CENTRAL LINE PLACEMENT > 5 YEARS 02/26/2022 N/A ABSCESS CATHETER INJECTION 03/12/2022 N/A Medical History Medical History Date Comments Perforated sigmoid colon (HCC) Arrhythmia Hypertension Hypercholesteremia Anemia Diabetes mellitus (HCC) Stomach ulcer Chronic kidney disease Thyroid disease Emphysema lung (HCC) Asthma GERD (gastroesophageal reflux disease) Sleep apnea Type 2 diabetes mellitus (HCC) Hypothyroidism Irritable bowel syndrome Family History Medical History Relation Name Comments Anesthesia problems Neg Hx Social History Tobacco Use Types Packs/Day Years Used Date Smoking Tobacco: Every Day Cigarettes 0.5 40 Smokeless Tobacco: Never Alcohol Use Standard Drinks/Week Comments Never 0 (1 standard drink = 0.6 oz pur e alcohol) AUDIT-C Answer Date Recorded Q1: How often do you have a drink containing alc ohol? Never 02/25/2022 Average Number of Drinks Not on file 022 Q3: How often do you have si x or more drinks on one occasion? 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 Gender Identity Not on file Sexual Orientation Not on file Obstetrics History Para Term AB IAB SAB Ectopic Multiple Livin g Live Births 1 1 1 1 Date Outcome GA Total Labor Labor/2nd/3rd Weight Sex Type Anes PTL Karla A1 A5 Name Clin Term Last Filed Vital Signs Vital Sign Reading Time Taken Comments Blood Pressure 140/88 04/09/2022 10:30 AM CDT Pulse 85 04/09/2022 10:30 AM CDT Temperature 36.7 C (98 F) 04/09/2022 10:30 AM CDT Respiratory Rate 18 04/09/2022 10:30 AM CDT Oxygen Saturation 96% 04/09/2022 10:30 AM CDT Inhaled Oxygen Concentration - - Weight 91.8 kg (202 lb 4.8 oz) 04/01/2022 1:09 P M CDT Height 165.1 cm (5' 5 ) 04/01/2022 1:09 PM CDT Body Mass Index 33.66 04/01/2022 1:09 PM CDT Plan of Treatment Scheduled Procedures Name Priority Associated Diagnoses Date/Ti me COLONOSCOPY Healthcare maintenance Health Maintenance Due Date Last Done Comments Albumin Creatinine Ratio, Urine 1960 Breast Cancer Screening-Mammogram 1960 Colon Cancer Screening-Colonoscopy 1960 Depression Screening 1960 Dilated Eye Exam 1960 Foot Exam 1960 DTaP/Tdap/Td Vaccine (1 - Tdap) 1972 Hepatitis B Screening 12/13/1979 Regular Well Visit/Exam 18-64 12/13/1979 Zoster Vaccine (1 of 2) 12/13/2011 Hemoglobin A1C 09/25/2022 03/25/2022, 12/31, 01/25/2022 eGFR 03/25/2023 03/25/2022, 08/0 11/2021, 03/04/2022, Additional history exists Lipid Panel 06/10/2023 06/10/2022, 12/31, 10/08/2021 Pneumococcal vaccine <65 (3 of 3 - PCV20 or PCV21) 07/06/2024 07/06/2019, 05/24/2018 Influenza Vaccine (Season Ended) 2025 Cervical Cancer Screening Discontinued 01/07/2022 Hepatitis C Screening Completed 02/12/2022, 021 Procedures Procedure Name Priority Date/Time Associated Diagnosis Comments EGFR Routine 03/25/2022 12:59 PM CDT Pelvic abscess in female HEMOGLOBIN A1C Routine 03/25/2022 12:59 PM CDT Cyst of right ovary Type 2 diabetes mellitus with other specified complication, with long-term current use of insulin (HCC) HEPATITIS C ANTIBODY Routine 02/12/2022 11:14 PM CDT LIPID PANEL Routine 01/25/2022 10:28 PM CDT PAP ONLY Routine 01/07/2022 4:25 PM CDT from Last 3 Months or Most Recently Relevant to Health Maintenance Results * eGFR (03/25/2022 12:59 PM CDT) eGFR >90 90 - 130 mL/min/1. 73 m2 SULEMA [facility] Comment: Interpretive Data Reference Interval Normal >/= 90 mL/min/1.73m2 Mildly decreased* 60 - 89 mL/min/1.73m2 Mildly to moderately decreased 45 - 59 mL/min/1.73m2 Moderately to severely decreased 30 - 44 mL/min/1.73m2 Severely decreased 15 - 29 mL/min/1.73m2 Kidney Failure < 15 mL/min/1.73m2 *Relative to young adult level Estimated glomerular filtration rate is determined by the 2020 CKD-EPI equation recommended by the National Kidney Foundation (A Unifying Approach to GFR Estimation: Recommendations of the NKF-ASK Task Force on Reassessing the Inclusion of Race in Diagnosing Kidney Disease, JASN 2020). The CKD-EPI equation should not be used for patients with unstable renal function and has not been validated in children and those over 70. Current interpretive data was last reviewed 2021. Blood 03/25/2022 12:5 9 PM CDT 03/25/2022 1:25 PM CDT Gabino Ge MD LAB BLOOD ORDERABLES Final R esult Performing Organization Address [facility] Co de Phone Number [facility] Department [place] [address] * (ABNORMAL) Hemoglobin A1c (03/25/2022 12:59 PM CDT) Hgb A1C 8.0(H) 4.0 - 5.6 % [facility] Estimated Average Glucose 183 mg/dL [facility] Comment: The ADA recommends reporting an estimated Average Glucose (eAG) with all Hemoglobin A1c results using the equation derived from a study of 507 normal and diabetic adults. Minority populations were underrepresented and children were not included. (Diabetes Care 2020; 43(S1): S66-S76). The eAG is not equivalent to a fasting glucose. Blood 03/25/2022 12:5 9 PM CDT 03/25/2022 1:18 PM CDT Result [facility] Last MD LAB BLOOD ORDERABLES Fin al Result Performing Organization Address [facility] de Phone Number [facility] [place] [address] * Hepatitis C antibody (02/12/2022 11:14 PM CDT) Pathologist [facility] Hep C Ab Nonreactive Nonreactive [facility] Comment:Antibodies to HCV no t detected. Does NOT exclude the possibility of recent exposure to HCV. Blood 02/12/2022 11:1 4 PM CDT 02/13/2022 12:25 AM CDT Result [facility] Last MD LAB MICROBIOLOGY - GENER AL ORDERABLES Edited Result - Final Performing Organization Address [facility] Co de Phone Number [facility] [place] [place] [address] * (ABNORMAL) Lipid panel (01/25/2022 10:28 PM CDT) Cholesterol 175 30 - 199 mg/dL [facility] Comment: Interpretive Data Ages < or = 19 years Acceptable: <170 mg/dL Borderline high: 170-199 mg/dL High: >or= 200 mg/dL Ages > or = 20 years Desirable: <200 mg/dL Borderline high: 200-239 mg/dL High: >or= 240 mg/dL Literature References: 1. Expert Panel on Integrated Guidelines for Cardiovascular Health and Risk Reduction in Children and Adolescents. Pediatrics 2011;128:S213 2. NCEP Expert Panel. Circulation 2004;110:227 Current Interpretive Data was last revised on 2018. Triglycerides 183(H) <=149 mg/dL [facility] Comment: Interpretive Data Ages < or = 9 years Acceptable: <75 mg/dL Borderline high: 75-99 mg/dL High: >or= 100 mg/dL Ages 10 to 20 years Acceptable: <90 mg/dL Borderline high: 90-129 mg/dL High: >or= 130 mg/dL Ages > or = 20 years Desirable: <150 mg/dL Borderline high: 150-199 mg/dL High: 200-499 mg/dL Very high: >or= 499 mg/dL Literature References: 1. Expert Panel on Integrated Guidelines for Cardiovascular Health and Risk Reduction in Children and Adolescents. Pediatrics 2011;128:S213 2. NCEP Expert Panel. Circulation 2004;110:227 Current Interpretive Data was last revised on 2018. HDL 35(L) >=40 mg/dL [facility] Comment: Interpretive Data Ages < or = 19 years Acceptable: >45 mg/dL Borderline low: 40-45 mg/dL Low: <40 mg/dL Ages > or = 20 years Desirable: >or= 60 mg/dL Low: <40 mg/dL Literature References: 1. Expert Panel on Integrated Guidelines for Cardiovascular Health and Risk Reduction in Children and Adolescents. Pediatrics 2011;128:S213 2. NCEP Expert Panel. Circulation 2004;110:227 Current Interpretive Data was last revised on 2018. LDL, calculated 103 <=129 mg/dL [facility] Comment: Interpretive Data Ages < or = 19 years Acceptable: <110 mg/dL Borderline high: 110-129 mg/dL High: >or= 130 mg/dL Ages > or = 20 years Optimal: <100 mg/dL Near optimal: 100-129 mg/dL Borderline high: 130-159 mg/dL High: >160 mg/dL Literature References: 1. Expert Panel on Integrated Guidelines for Cardiovascular Health and Risk Reduction in Children and Adolescents. Pediatrics 2011;128:S213 2. NCEP Expert Panel. Circulation 2004;110:227 Current Interpretive Data was last revised on 2018. Non-HDL Cholesterol 140 mg/dL [facility] Comment: Interpretive Data Ages < or = 19 years Acceptable: <120 mg/dL Borderline high: 120-144 mg/dL High: >145 mg/dL Ages > or = 20 years When triglycerides are >200 mg/dL, Non-HDL cholesterol is a secondary target of therapy with treatment goals that are 30 mg/dL greater than the LDL cholesterol target. Literature References: 1. Expert Panel on Integrated Guidelines for Cardiovascular Health and Risk Reduction in Children and Adolescents. Pediatrics 2011;128:S213 2. NCEP Expert Panel. Circulation 2004;110:227 Current Interpretive Data was last revised on 2018. Chol/HDL ratio 5 [facility] Blood 01/25/2022 10:2 8 PM CDT 01/25/2022 11:07 PM CDT Ward Last MD LAB BLOOD ORDERABLES Fin al Result [facility] Department [place] [address] * Pap Only (01/07/2022 4:25 PM CDT) Pap test 01/07/2022 4:25 PM CDT 01/08/2022 6:28 AM CDT Narrative 01/13/2022 1:01 PM CDT EPIC results best viewed via link to PDF [facility] [place] [address] Note to Patients: This report may contain a detailed description of human tissue sent by a health care provider to the laboratory for pathologic evaluation. The content of this report is essential for diagnosis and may provide important critical findings. This information may be unfamiliar to patients to review without a medical professional present. It is advised that the patient review this report in the presence of a health care provider who can answer questions and explain the details. CYTOPATHOLOGY REPORT FINAL Patient Name: LUZ BENZ Gender: F : 1960 (Age: 61) Address: [address] [place] [address] Hospital #: [id number] Service: ACTUARIAL MATHEMATICIAN Location: Patient Type: [facility] SPECIMEN Taken: 01/07/2022 Received: 01/08/2022 Accessioned: 01/11/2022 Reported: 01/13/2022 Physician(s): Ward Last M.D. FINAL INTERPRETATION SOURCE OF SPECIMEN: Liquid based Thin Prep pap STATEMENT OF ADEQUACY: - Satisfactory for evaluation - No endocervical/transformation zone sample present in a post menopausal patient GENERAL CATEGORY: - Negative for squamous intraepithelial lesion or malignancy Comments HPV Result: NEGATIVE for high risk types of Human Papilloma Virus (HPV) RNA This probe detects the presence of HPV types: 16, 18, 31, 33, 35, 39, 45, 51, 52, 56, 58, 59, 66 and 68. This HPV test was performed at [facility] in [place], [place] utilizing the Gen-Probe Aptima assay. melita/01/13/2022 13:01 EVELYNE Wallace(ASCP) Report Electronically Reviewed and Signed Out By EVELYNE Wallace(ASCP) 01/13/2022 13:01:08 Cervicovaginal Cytology (Pap Test) Disclaimer: The Pap test is a screening test used to detect cervical cancer and its precursors; it is not a diagnostic procedure. False negative and false positive results do occur. Pap test results should be interpreted in the context of pertinent clinical information and biopsy results as indicated. Gross Description A. Liquid based Thin Prep pap: Cervical/vaginal - Screening ThinPrep Clinical Diagnosis and History Last Menstrual Period: Post ablation Menstrual History: Post-menopausal The patient is a 61 year old woman with screening. The HPV test was performed by [facility], [address] [place] [address]. Report Images and scanned documents, if included only viewable in PDF version The performance characteristics of some immunohistochemical stains, in-situ hybridization and fluorescence in-situ hybridization tests and immunophenotyping by flow cytometry cited in this report (if any) were determined by the Surgical Pathology Department at as part of an ongoing quality control head program and in compliance with federally mandated regulations drawn from the Clinical Laboratory Improvement Act of 1988 (CLIA '88). Some of these tests rely on the use of analyte specific reagents and are subject to specific labeling requirements by the US Food and Drug Administration. Such diagnostic tests may only be performed in a facility that is certified by the Department of Health and Human Services as a high complexity laboratory under CLIA '88. The FDA has determined that such clearance or approval is not necessary. This test is used for clinical purposes. It should not be regarded as investigational or for research. Nevertheless, federal rules concerning the medical use of analyte specific reagents require that the following disclaimer be attached to the report: This test was developed and its performance characteristics determined by the Surgical Pathology Department of . It has not been cleared or approved by the U. S. Food and Drug Administration. Ward Last MD LAB CYTOLOGY ORDERABLES Final Result from Last 3 Months or Most Recently Relevant to Health Maintenance Insurance [id number] [place] [address] Advance Directives For more information, please contact: [phone] * Full Code (Latest Code Status on File) Date Activated Date Inactivated Comments 03/12/2022 7:31 AM 03/13/2022 4:53 AM * Full Code Date Activated Date Inactivated Comments 02/25/2022 1:00 AM 03/06/2022 4:47 PM * Full Code Date Activated Date Inactivated Comments 02/07/2022 4:57 PM 02/14/2022 5:53 PM * Full Code Date Activated Date Inactivated Comments 01/25/2022 9:18 PM 01/28/2022 3:10 PM * Full Code Date Activated Date Inactivated Comments 01/15/2022 2:47 PM 01/16/2022 3:22 AM Care Teams Dentures Lab Technician Relationship Specialty Start Date End Date Jessy Kline NP [address] [place] [id number] PCP - General Nurse Practitioner 03/21/19 Kristen Ortiz NP [address] [place] [id number] Nurse Practitioner Obstetrics and Gynecology 01/07/22
--- OUTSIDE RECORDS SUMMARY | 2024-12-17 15:19 | XMS_ITS | Encounter Summary ---
Author Organization [facility] Address [address] [place] [id number] Care Team Providers Care Curb Worker Name Role Phone Kristen Kline PRAFUL Primary Care Provider [phone] Encounter Details Date Type Department Care Team (Late st Contact Info) Description 10/12/2021 Cas[place]t Message Enc [facility] Family [facility] Internal Medicine [facility] [address] [place] [address] Kristen Kline FNP [address] [place] [address] appointment Social History Tobacco Use Types Packs/Day Years Used Date Smoking Tobacco: Every Day Cigarettes 2.5 47 Smokeless Tobacco: Never Comments:Provider to credit 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
--- OUTSIDE RECORDS SUMMARY | 2024-12-17 15:19 | XMS_ITS | Referral Summary ---
Author Organization [facility] at the [facility] Center Address [address] [place] [address] Care Team Providers Care Psychological Anthropologist Name Role Phone Jessy Kline NP Primary Care Provider + [phone] Kristen Ortiz MEDICAL ASSEMBLY Unavailable [phone] Allergies Active Allergy Reactions Criticality Noted Date Comments Ciprofloxacin Hives,Rash Medium 02/21/2012 Hives Doxycycline Hives,Unknown Medium 01/17/2015 Hives Metronidazole Hives,Headache Medium 01/25/2022 Spoke with MEDICAL ASSEMBLY- ok to give PO metronidazole- exacerbates neuropathy [...] PCV 13 05/24/2018 Pneumococcal Polysaccharide PPV23 07/06/2019 Social History Tobacco Use Types Packs/Day Years [...] on file 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 73 m2 [facility]LE[facility] Comment: Interpretive Data Reference Interval Normal >/= [...] of Race in Diagnosing Kidney Disease, JASN 202). The CKD-EPI equation should not be used for patients with unstable renal function and has not been validated in children and those over 70. Current interpretive data was last reviewed 2021. Blood 03/25/2022 12:5 9 PM CDT 03/25/2022 1:25 PM CDT Result [facility] Gabino Ge MD LAB BLOOD ORDERABLES Final R esult Performing Organization Address [facility] Co de Phone Number [facility] Department [place] [address] * (ABNORMAL) Hemoglobin A1c (03/25/2022 12:59 PM CDT) Hgb A1C 8.0(H) 4.0 - 5.6 % [facility] Estimated Average Glucose 183 mg/dL [facility] Comment: The ADA recommends reporting an estimated Average Glucose (eAG) with all Hemoglobin A1c results using the equation derived from a study of 507 normal and diabetic adults. Minority populations were underrepresented and children were not included. (Diabetes Care 2020; 43(S1): S66-S76). The eAG is not equivalent to a fasting glucose. Blood 03/25/2022 12:5 9 PM CDT 03/25/2022 1:18 PM CDT Result [facility] Ward Last MD LAB BLOOD ORDERABLES Fin al Result Performing Organization Address [facility] de Phone Number [facility] [place] [employer] [place] [address] * Hepatitis C antibody (02/12/2022 11:14 PM CDT) [facility] Hep C Ab Nonreactive Nonreactive [facility] Comment:Antibodies to HCV no t detected. Does NOT exclude the possibility of recent exposure to HCV. Blood 02/12/2022 11:1 4 PM CDT 02/13/2022 12:25 AM CDT Result [facility] Ward Last MD LAB MICROBIOLOGY - GENER AL ORDERABLES Edited Result - Final Performing Organization Address [facility] Co de Phone Number [facility] Department [place] [employer] [place] [address] * (ABNORMAL) Lipid panel (01/25/2022 10:28 PM CDT) Cholesterol 175 30 - 199 mg/dL [facility] Comment: Interpretive Data Ages < or = [...] revised on 2018. Triglycerides 183(H) <=149 mg/dL [facility] Comment: Interpretive Data Ages < or = [...] revised on 2018. HDL 35(L) >=40 mg/dL [facility] Comment: Interpretive Data Ages < or = [...] on 2018. LDL, calculated 103 <=129 mg/dL [facility] Comment: Interpretive Data Ages < or = [...] revised on 2018. Non-HDL Cholesterol 140 mg/dL [facility] Comment: Interpretive Data Ages < or = [...] last revised on 2018. Chol/HDL ratio 5 [facility] Blood 01/25/2022 10:2 8 PM CDT 01/25/2022 11:07 PM CDT us Ward Last MD LAB BLOOD ORDERABLES Fin al Result [facility] Department [place] [address] * Pap Only (01/07/2022 4:25 PM CDT) Pap test 01/07/2022 4:25 PM CDT 01/08/2022 6:28 AM CDT Narrative 01/13/2022 1:01 PM CDT EPIC results best viewed via link to PDF [facility] [place] [address] Note to Patients: This report may contain [...] Gender: F : 1960 (Age: 61) Address: [address] [place] [address] Hospital #: [id number] Service: LAMINATION SPINNER Location: Patient Type: [facility] SPECIMEN Taken: 01/07/2022 Received: 01/08/2022 Accessioned: 01/11/2022 [...] 69. This HPV test was performed at [facility] in [place], [place] utilizing the Gen-Probe Aptima assay. melita/01/13/2022 [...] screening. The HPV test was performed by [facility] [address] [place] [address]. Report Images and scanned documents, if included only viewable in PDF version The performance characteristics of some immunohistochemical stains, in-situ hybridization and fluorescence in-situ hybridization tests and immunophenotyping by flow cytometry cited in this report (if any) were determined by the Surgical Pathology Department at [facility] as part of an ongoing production quality manager program and in compliance with federally mandated [...] determined by the Surgical Pathology Department of [facility]. It has not been cleared or approved by the U. S. Food and Drug Administration. Ward Last MD LAB CYTOLOGY ORDERABLES Final Result from Last 3 Months or Most Recently Relevant to Health Maintenance Insurance ([phone] [place] [phone] [place] [address] Advance Directives For more information, please contact: [phone] * Full Code (Latest Code Status on [...] 2:47 PM 01/16/2022 3:22 AM Care Teams Psychological Anthropologist Relationship Specialty Start Date End Date Jessy Klnie NP [address] [place] [id number] PCP - General Nurse Practitioner 03/21/19 Kristen Ortiz NP [address] [place] [id number] Nurse Practitioner Obstetrics and Gynecology 01/07/22
== END 2024-12-17 15:16 | disposition home or self-care (01) ==
PROVIDERS: PCP Nurse Practitioner Family; Visit Provider Nurse Practitioner Family
DX: Z12.2 Encounter for screening for malignant neoplasm of respiratory organs (principal); G89.29 Other chronic pain; F17.210 Nicotine dependence, cigarettes, uncomplicated; M17.11 Unilateral primary osteoarthritis, right knee
CPT/HCPCS: 71271; 73562